=== PATIENT | male | born 1960 ===

== ENCOUNTER 2017-04-18 13:13 | Inpatient (IN) | payer OTHER ==
[2017-04-18] MEDS ORDERED: MAG HYDROX/AL HYDROX/SIMETH 30 ML UDCUP PO PRN (18:51)
[2017-04-18] MEDS ORDERED: MAGNESIUM HYDROXIDE 30 ML UDCUP PO PRN (18:51)
[2017-04-18] MEDS ORDERED: NICOTINE POLACRILEX 2 MG GUM B PRN (19:00)
[2017-04-18] MEDS: cloZAPine 100 MG TAB PO SCH (21:55)
[2017-04-18] MEDS: DOCUSATE SODIUM 100 MG CAP PO SCH (21:56)
[2017-04-18] MEDS: LORazepam 1 MG TAB PO SCH (21:57)
--- NOTE | 2017-04-19 10:09 | GHP ---
[f rep st] HISTORY AND PHYSICAL DATE OF ADMISSION: 04/18/2017 CHIEF COMPLAINT: Behavioral abnormality. HISTORY OF PRESENT ILLNESS: A 56-year-old male who presents to inpatient Psychiatry for ECT therapy from the outside Center and the patient has been found to entirely withdraw from his surrounding envi ronment, taking very little orally. The patient had been diagnosed with a hip fracture approximately 3-4 weeks ago and has been declining at his outside care facility. The patient was transferred for ECT therapy. The patient is not effectively answering review questions. He is speaking in a rhythmi c manner, using nonsensical words. On a few questions prompted he nods his head no. Otherwise will intermittently repeat a word that you say, in this rhythmic manner, but not meaningfully answer quest ions. PAST MEDICAL HISTORY: 1. Schizoaffective disorder. 2. Recent hip fracture. 3. Failure to thrive. SOCIAL HISTORY: Smokes a half a pack per day previously. Intermittently uses marijuana. FAMILY HISTORY: Negative for psychiatric abnormalities. REVIEW OF SYSTEMS: A 10-point review of systems was not obtainable secondary to the patient's psychi atric state. PHYSICAL EXAMINATION: VITAL SIGNS: Blood pressure 140/92, heart rate 116, respiratory rate 20, 94% on room air, 36.3. IN GENERAL: This is a cachectic appearing male. HEENT: Notable for dry mucous m embranes. Eye exam is negative for any icterus. CARDIAC: Patient is tachycardic but regular. PULM ONARY: No clear rales or rhonchi are heard through his rhythmic speech. GASTROINTESTINAL: Patient is thin. Positive bowel sounds. Nontender. MUSCULOSKELETAL: Negative for any lower extremity edema. There is decubitus skin breakdown on the coccyx, which was present on admission without surrounding e rythema. NEUROLOGIC: He is moving all 4 extremities. PSYCHIATRIC: He is not engaging in outside sti mulus. DATA: Urinalysis shows ketones. ASSESSMENT AND PLAN: This is a 56-year-old male with schizoaffective disorder presenting for electro convulsive therapy. 1. Failure to thrive. Patient has marked cachexia, body mass index of 13. I have asked for basic l abs to evaluate his overall electrolyte and fluid status. Have encouraged the nurses to assist in or al intake, either solid or liquid. 2. Severe protein-calorie malnutrition. This has certainly been progressive over time compound by h is psychiatric illness. Hopefully electroconvulsive therapy will assist. Again have encouraged supp ort staff nursing to prompt and provide food. 3. Tachycardia. Presumed sinus as its regular on examination, suspect this is likely volume related . We will send basic labs and follow. Would like to avoid an IV and IV fluids if we can. 4. Recent hip fracture. I do not have any imaging data or supporting data of how this was treated. The patient is currently non ambulatory secondary to his psychiatric illness. Can discuss imaging o r getting old records with the nursing staff on . 5. Decubitus wound is currently dressed. Wound Care should be consulted. Again will send a CBC to look for any signs of deeper infection. 6. I have discussed the case with the RN on the floor. We will send basic labs today. Follow the p jamila's vital signs closely and do our best to encourage oral intake as able. /[id number]/MODL
[2017-04-19] MEDS: LORazepam 1 MG TAB PO SCH ×3 (10:20→22:43)
[2017-04-19] MEDS: DOCUSATE SODIUM 100 MG CAP PO SCH ×2 (10:20→22:42)
[2017-04-19 11:12] LABS: PLATELET COUNT 419 10^3/uL (150-400)
--- NOTE | 2017-04-19 15:05 | BAPA ---
[f rep st] ADMISSION PSYCHIATRIC ASSESSMENT DATE OF SERVICE: 04/19/2017 CHIEF COMPLAINT: The patient does not respond when asked questions. He was referred here from [facility] for ECT treatment. HISTORY OF PRESENT ILLNESS: The patient is a 56-year-old male with a history of schizoaffective disorder, bipolar type with psychotic features. Admitted to [facility] for treatment of sepsis, and was discharged back to [facility] on 04/13/2017. He was then admitted to [facility] on 04/15/2017, he was referred from his care home facility on 04/14/2017, for concern about worsening psychosis, he had been residing at [place] following rehab from a hip fracture on 03/28/2017. Initially, he was able to communicate and move without problems, however, in the last week and half prior to [facility] admission, he developed a gradual decrease in altered mental status. Decreased cognitive abilities, inability interact with his surroundings, echolalia, isolated episodes of waxy flexibility. His sleep and eating had been erratic, and at some point, stopped completely. The care home facility staff were unable to say whether the patient was experiencing hallucinations, but they did note that he was confused and babbling , and talking nonsense. He is making eye contact, but otherwise responding to questions. Patient was placed on M1 hold at [facility], the noted "a danger to self and gravely disabled, due to his medical condition and exhibiting severe psychosis throughout the day." Prior to going into [facility], the patient when he was at [place] was taking the following medications: Tylenol for postop light hip pain, albuterol p.r.n. for COPD, Clozaril 400 mg at bedtime, Colace p.r.n. for constipation, Lovenox injection every 24 hours for 21 days post hip surgery for DVT prophylaxis. He was on iron supplement for anemia. He was on Levaquin for pneumonia, Lithobid, NicoDerm, Risperdal, vitamin C, Ativan for anxiety. According to psychiatric assessment that was done by Brennan Cali MD, at the inpatient psych unit at [facility], he noted "Anthony is a 56-year-old male with schizoaffective disorder, referred on 04/14/2017 for altered mental status. Differential for altered mental status includes acute psychotic episode versus delirium. On examination he exhibits somewhat slow, stilted, but continues speech relatively well, articulated, soft at times, metronomic with delusional content. Sometimes congregation base, that with echolalia, slight apraxias, supports his primary does diagnosis as acute psychosis secondary to his underlying schizoaffective disorder. Of note, baseline is much better with independent function in an apartment, chronic, more mild psychosis, so the current picture is severe episode of schizoaffective." Dr. Cali's note continues that the patient is currently full assist, PT, OT, status post hip fracture a month prior to admission to [facility], currently lives at [place], unable to have any meaningful conversations. RNs report mostly no behavioral issues at [place], rare noncompliance of medications, occasional minimal agitation for short periods of time, but no meaningful interactions, occasionally follows commands, briefly responds, asked for chocolate milk. Information that was provided by [place] is as follows: The patient has been residing at [place] following rehab from hip fracture on 03/28/2017. At that time, he was able to communicate and move without problems, although, he was in a wheelchair. Over the last week, having increasing altered mental status, poor cognition, echolalia, decreased eating, erratic sleep. He was treated for the sepsis, as previously noted in the discharge back to [place], without any noticeable improvement in his mental status. Psychiatry was consulted to address the patient's changes in mental status and clarify the diagnosis, and they gave the following recommendations. RECOMMENDATION: 1. Continue 1 mg lorazepam p.o. q.i.d. for psychogenic catatonia. 2. Could very much benefit from ECT and prognosis without ECT very guarded. 3. For now, continue clozapine, lithium, which is at a therapeutic dose now, the level was 0.7 on 04/18/2017. 4. Discussed at length with Dr. Burnett, at [facility], will accept him for ECT. 5. Stop Risperdal, any benefit added clozapine and muddies the number of meds picture with added side effects. 6. If no improvement, at some point, could consider scheduled Tylenol 500 p.o. t.i.d. for possible pain, recommend likely stopping the propranolol, which was prescribed for akathisia since the patient is no longer on risperidone. 7. He seems to do fairly well with minimal interaction, gets upset with continued questions, in general recommend not trying to explain or ask many questions. 8. The patient will be transferred on a mental health hold for grave disability and longer-term danger to self, from worsening medical condition from his psychosis. The patient was transferred on 04/18/2017 to [facility] inpatient behavior health services unit on [address], at the recommendation of the patient's treating psychiatrist, Dr. Brennan Cali from [facility], who had discussed ECT treatment and recommended it due to the patient's grave disability and serious decompensation, both physically and mentally over the last couple of weeks. PAST PSYCHIATRIC HISTORY: As previously noted, the patient has a history of schizoaffective disorder, bipolar type with psychotic features. He had been residing at [facility], and was getting followup treatment in the outpatient [facility]. He was being prescribed as an outpatient, Lithobid 300 mg p.o. b.i.d., he was getting Clozaril 400 mg p.o. q.h.s. He was also getting Risperdal 1 mg p.o. b.i.d., which was stopped at [facility] on the inpatient unit, and Ativan 1 mg p.o. q.i.d. was added for catatonia. He was also getting propranolol 10 mg p.o. t.i.d., for akathisia, supposedly related to his Risperdal, but that was also discontinued, when his Risperdal was discontinued by Dr. Cali on the inpatient unit at [facility]. ALLERGIES: The patient is allergic to penicillin. CURRENT MEDICATIONS: Are as follows, the patient was discharged from [facility] on the following meds: He was on acetaminophen 650 mg p.o. q.6 hours p.r.n. for postop hip pain. Lorazepam 1 mg p.o. q.i.d. for psychogenic catatonia, albuterol 90 mcg 1-2 puffs q.4 hours p.r.n. for COPD, vitamin C 500 mg tablet 1 tab p.o. daily, Clozaril 400 mg p.o. q.h.s., Colace 100 mg p.o. b.i.d. p.r.n., Lovenox 40 mg IM q.24 hours x21 days status post hip surgery for DVT prophylaxis. Iron 325 mg tab daily for anemia, lithium carbonate ER 300 mg tab p.o. b.i.d., and a nicotine patch 21 mg per 24 hours. PAST MEDICAL HISTORY: Medical records from [facility] indicate that the patient has had the previous medical conditions treated, including arthritis severe protein calorie malnutrition, nicotine dependence, schizoaffective disorder, bipolar type with psychotic features, sepsis, hip fracture on 03/28/2017, status post hip replacement. He has also had surgery for a fracture on his right foot. SOCIAL HISTORY: The patient has been residing at [facility]. He has no known family involved in his life at this time. SUBSTANCE USE HISTORY: Patient occasionally smokes marijuana. He is also 1-1/ 2 pack per day smoker, for many decades. CONTACT INFORMATION: At [place], his egg caser is Xi Diaz, phone number is [phone]. No information provided about the patient's educational history or work history. No legal information. ADMISSION LABS: Since patient was a direct transfer from [facility], there are no labs from our ED, but he did have labs done on 04/14/2017, when he was admitted from [place] to the ED at [facility], his white cell count was 8.0 , hemoglobin was 11.1, hematocrit was 34.1. The patient has a history of iron- deficient anemia, platelet count was 459. Sodium level was 138, potassium was 4.1, chloride was 108, glucose was 174, BUN 32, creatinine was 0.7. His albumin was 3.4, total bilirubin 0.4, alkaline phosphatase was 146, AST was 27. [place] level was 0.2 on 04/14, it went up to 0.7 on 04/18/2017, according to Dr. Cali's note. MENTAL STATUS EXAMINATION: Patient is extremely cachectic, he had a body mass index of 13 upon presentation to [address] [place] [address], he has severe protein calorie malnutrition. He is seated in a wheelchair. Disheveled. He makes eye contact when the MD walks into the room. However, he has constant echolalia, he repeats the same phrases over and over, and over again. He does not have much movement. He is sitting in the wheelchair, in no acute distress, or does not appear to be in any pain. He is vocalizing any pain when he is adjusted in the wheelchair by the staff. Other than making eye contact, he has no interaction with the interviewer whatsoever. He does not pause in his repetitive speech, he is not alert and oriented. His sensorium is very altered. It is impossible to determine whether or not he is responding to internal stimuli, or whether he has actively hallucinating, or psychotic at this time. He did not sleep at all last night, and he has not eaten anything this morning. The nurses did try to give him some medications with applesauce, but he spit it out. He does have a water bottle on his bedside tray, but he has had only a few sips with much prompting. IMPRESSION: This is an extremely, both physically and mentally decompensated individual, with severe medical complications due to failure to thrive, as well as status post recent hip fracture surgery, with sepsis secondary to his surgery , and then extreme protein calorie malnutrition, on top of which he has an acute exacerbation of schizoaffective disorder with psychosis and psychogenic catatonia. DIAGNOSES: 1. Schizoaffective disorder, bipolar type with psychotic features, as well as catatonic features. 2. Cannabis use disorder, moderate. 3. Nicotine use disorder, severe. 4. Psychosocial stressors include medical complications, status post surgery and recent septic episode, extreme failure to thrive over the last several weeks. Evidence of protein calorie malnutrition, cachectic. No family involvement, living in an independent living facility. No social support. Unknown financial support. PLAN: 1. Admit patient to behavioral health services inpatient unit on an M1. 2. Monitor closely for safety. The patient is on fall precautions due to his extremely altered mental status and severely decompensated physical state. 3. Patient was evaluated by the hospitalist, Dr. Law, this morning. Dr. Law noted that the patient has a body mass index of 13. She stated "I have asked for basic labs to evaluate his overall electrolyte and fluid status. Have encouraged nurses to assist in oral intake, both solid and liquid. She also noted the patient has severe protein calorie malnutrition. This is certainly been progressive over time, compounded by psychiatric illness, hopefully ECT therapy will assist. Again, I have encouraged staff to prompt and provide food." Dr. Law also noted that the patient had sinus tachycardia, on his most recent EKG, which was done at [facility], just prior to arrival. She noted that "suspects this is likely volume related, we will send basic labs and follow, would like to avoid IV and IV fluids, if we can." Dr. Law also noted that the patient has a recent hip fracture, but she states "I do not have any imaging date or supporting data of how this was treated, the patient is currently nonambulatory secondary to a psychiatric illness, can discuss imaging or getting old records with the nursing staff on [address] [place] [address]." The patient also has a decubitus ulcer that was dressed at [facility] in [place]. Dr. Law stated that "wound care should be consulted, again we will send CBC to look for signs of deeper infection." Most recent set of labs that was sent this morning by the [address] [place] [address] RN: White cell count is 8.27 , hemoglobin 12.7, hematocrit 38.0, platelet count 419. Sodium 140, potassium 4.7, chloride 103, BUN 20, creatinine 0.7, glucose 120, and calcium of 10.2. So , this patient does not show any signs of acute electrolyte imbalance secondary to his poor p.o. intake, but we will continue to monitor and assess whether or not he needs IV fluids, or parental nutrition. 4. At this time, the patient to be continued on the regimen that he was on while he was at [facility], which includes Clozaril 400 mg p.o. q.h.s., Lithobid 300 mg p.o. b.i.d., Colace 100 mg p.o. b.i.d., Ativan 1 mg p.o. t.i.d. for catatonia. 5. Appreciate Dr. Law and the rest of the hospitalist staff following this patient with acute malnutrition and failure to thrive, for his ongoing medical needs. 6. At the current time, patient is not able to engage in any milieu therapies or group therapies, he is wheelchair bound and staying in his room most of the day. He is on fall precautions, and he has a line of sight for his safety. 7. Estimated length of stay is 5-7 days. 8. After reviewing medical records from [facility] and [facility], and doing in person evaluation of the patient, this MD feels strongly that ECT is the intervention most likely to produce the most beneficial results for this patient, given the fact that he has acute exacerbation of his schizoaffective disorder with acute psychosis, as well as catatonic features. He has been on lorazepam 1 mg p.o. q.i.d. for the last 2-3 days, which shows only minimal improvement, I would recommend emergency ECT, as this is the treatment that is most likely to show benefit for the patient in the short term, given the fact that he has had deteriorating physical and mental condition over the last several weeks. The combination of his psychiatric illness, with his severe failure to thrive, and protein calorie malnutrition, puts him at risk not only for body wasting, but also possible neurological deficits, which can be long-term, as well as the physical risks of poor p.o. intake, as a result of his catatonia, and his psychosis, which make him gravely disabled and is impairing his health and well being, if not his very life, if this condition continues without appropriate intervention. Therefore, this MD would strongly encourage ECT as the treatment most likely to help this patient recover and return to his cognitive and physical, as well as mental baseline. /[id number]/MODL MTDD
[2017-04-19] MEDS: cloZAPine 100 MG TAB PO SCH (22:42)
[2017-04-19] MEDS: LITHIUM CARBONATE ER 300 MG TAB PO SCH (22:43)
[2017-04-20] MEDS: LORazepam 1 MG TAB PO SCH ×4 (06:38→21:56)
[2017-04-20] MEDS: LITHIUM CARBONATE ER 300 MG TAB PO SCH ×2 (09:13→21:55)
[2017-04-20] MEDS: DOCUSATE SODIUM 100 MG CAP PO SCH ×2 (09:13→21:56)
--- NOTE | 2017-04-20 13:49 | SOAPPROG ---
SOAP Progress Note Assessment/Plan: Assessment: Plan: 04/20/17 13:45 1. Patient still catatonic. Not eating and drinking very little (< 600cc's this AM). Electrolytes are WNL, albumin only slightly below normal. 2. Will order E-meds Day #1 for IM Ativan to treat catatonia since patient is spitting out all meds. 3. Strongly recommend emergency ECT for patient's safety and wellbeing. Subjective: Met with patient, reviewed chart and d/w staff. Patient is sitting in wheelchair rocking back and forth with fingers in his mouth. He has less echolalia today, and is murmuring in lower voice than yesterday. He does not have waxy flexibility or rigidity. He moves his arms freely and can transfer into/out of bed with assistance. He has consumed about 400cc's of milk and some small sips of water this AM. No falls yesterday or today. Nursing is discussing option of using gait belt while patient is seated, reviewed this option with staff and RN is talking to [facility] to work out details and consider alternatives. Objective: Vital Signs Temp Pulse Resp BP Pulse Ox 37.4 C 106 H 18 104/70 93 04/20/17 10:18 04/20/17 10:18 04/20/17 06:45 04/20/17 10:18 04/20/17 10:18 Laboratory Results 04/19/17 10:12 04/19/17 10:12 04/19/17 04/20/17 04/21/17 05:59 05:59 05:59 Intake Total 800 200 Output Total 200 Balance 800 0 MSE: Affect: Constricted Mood: No response TP: Unable to assess b/c patient engages in nonsensical speech, echolalia and does not engage interviewer or answer questions d/t catatonic sxs TC: See TP Insight/Judgment: Severely impaired - Time Spent With Patient Time Spent With Patient: 20" - Pending Discharge Pending Discharge Within 24 Hours: No Pending Discharge Within 48 Hours: No ICD10 Worksheet Patient Problems: Problems Problem Status Onset Decubitus ulcer Acute
[2017-04-20] MEDS ORDERED: LORazepam 2 MG/ML INJ IM ONE (14:18)
--- NOTE | 2017-04-20 14:38 | HOSPPROG ---
Hospitalist Progress Note Assessment/Plan: # Severe protein calorie malnutrition - BMI 13 - 2/2 mental illness and failure to thrive pt took minimal solid food overnight- however did increase his liquid intake with RN support - continue to encourage intake - hopefully ECT will help # Tachycardia - suspect 2/2 hypovolemia - creatinine 0.7 oxygen saturations 94% on RA - continue to monitor and encourage PO # Decubitus ulcer - present on admission - wound care consulted # Catatonia - management per psychiatry I have discussed the case with RN - continue to encourage PO - labs without significant signs of dehydration Subjective: no reported complaints Objective: Vital Signs Temp Pulse Resp BP Pulse Ox 37.4 C 106 H 18 104/70 93 04/20/17 10:18 04/20/17 10:18 04/20/17 06:45 04/20/17 10:18 04/20/17 10:18 Laboratory Results 04/19/17 10:12 04/19/17 10:12 04/19/17 04/20/17 04/21/17 05:59 05:59 05:59 Intake Total 800 200 Output Total 200 Balance 800 0 - Physical Exam Constitutional: cachectic Eyes: anicteric sclera Ears, Nose, Mouth, Throat: dry mucous membranes Cardiovascular: regular rate and rhythym, tachycardia Respiratory: no respiratory distress Gastrointestinal: normoactive bowel sounds Genitourinary: no bladder fullness Skin: warm, pressure ulcer Musculoskeletal: No asymmetric calves Neurologic: No AAOx3 Psychiatric: other (catatonia) Lymph, Heme, Immunologic: no cervical LAD ICD10 Worksheet Patient Problems: Problems Problem Status Onset Decubitus ulcer Acute - ICD10 Problem Qualifiers (1) Decubitus ulcer
[2017-04-20] MEDS: LORazepam 2 MG/ML INJ IM PRN ×2 (18:14→21:49)
[2017-04-20] MEDS: cloZAPine 100 MG TAB PO SCH (21:56)
[2017-04-21] MEDS: LORazepam 1 MG TAB PO SCH ×5 (06:30→21:37)
--- NOTE | 2017-04-21 08:05 | CPEKG ---
Heart Rate: 94 RR Interval: 638 P-R Interval: 104 QRSD Interval: 94 QT Interval: 364 QTC Interval: 456 P [place]: 0 QRS [place]: 73 T Wave [place]: -40 EKG Severity - NORMAL ECG - EKG Impression: SINUS RHYTHM EKG Impression: MODERATE ARTIFACT Electronically Signed By: Ancelmo Peraza 21-Apr-2017 10:43:29
[2017-04-21] MEDS: DOCUSATE SODIUM 100 MG CAP PO SCH (08:18)
[2017-04-21] MEDS: LITHIUM CARBONATE ER 300 MG TAB PO SCH (08:20)
[2017-04-21] MEDS ORDERED: CITRIC ACID/SODIUM CITRATE 30 ML UDCUP PO ONE (10:46)
[2017-04-21] MEDS ORDERED: NS 1,000 ML IV ONE (10:46)
[2017-04-21] MEDS ORDERED: ONDANSETRON DISINTEGRATING 4 MG TAB PO ONE (10:46)
[2017-04-21] MEDS ORDERED: LIDOCAINE 2% 5 ML SDV ID ONE (10:46)
[2017-04-21] MEDS ORDERED: GLYCOPYRROLATE 0.2 MG/1 ML VIAL ONE (12:34)
[2017-04-21] MEDS ORDERED: ROCURONIUM 50 MG/5 ML VIAL ONE (12:34)
[2017-04-21] MEDS ORDERED: ONDANSETRON 4 MG/2 ML VIAL ONE (12:34)
[2017-04-21] MEDS ORDERED: SUCCINYLCHOLINE CHLORIDE 200 MG/10 ML VIAL ONE (12:34)
[2017-04-21] MEDS ORDERED: MIDAZOLAM 2 MG/2 ML VIAL ONE (12:34)
[2017-04-21] MEDS ORDERED: fentaNYL 100 MCG/2 ML INJ ONE (12:34)
--- NOTE | 2017-04-21 13:02 | SOAPPROG ---
SOAP Progress Note Assessment/Plan: Assessment: Plan: 04/21/17 16:22 Remains catatonic. Will d/c lithium to eliminate the possibility of worsening cognition during ECT. Will continue Clozaril and Ativan. Subjective: Pt seen, discussed with staff, Dr. Malone and Dr. Cali from [facility]. Records from [facility] and [facility] also reviewed. he is a 56 y/o CM with hx of Schizoaffective D/o. He was originally admitted to [facility] earlier in March due to a hip fracture. He received surgical repair of this and was transferred to SNF. While there he developed pneumonia and was readmitted medically. When he returned, he exhibited a severe decline in his mentation and was thought to be either delirious or catatonic. His mental status worsened despite stabilization of his medical condition and he was diagnosed with catatonia. He was transferred at the request of Dr. Cali and Dr Vizcarra (psychiatrists) who both recommended ECT. Dr. Malone also recommended ECT when he evaluated the patient on 04/19/17. Pt is not eating or drinking and cannot communicate meaningfully. He is unable to ambulate or toilet himself. It is Dr. Malone's opinion that emergency ECT is indicated due to the severity of pt's condition and his inability to eat or drink. I concur with this opinion. Pt was transported to the ECT suite this morning and bilateral ECT was performed under emergency circumstances pursuant to [place] statute. Short term certification was placed and proper petition was sent to the court. He tolerated the procedure well with no complications. He had bilateral treatment at 50%, 0.5mS pulse width and had an adequate seizure with good organization, good amplitude and morphology and good suppression. Objective: Vital Signs Temp Pulse Resp BP Pulse Ox 37.4 C 106 H 18 104/70 93 04/20/17 10:18 04/20/17 10:18 04/20/17 06:45 04/20/17 10:18 04/20/17 10:18 Laboratory Results 04/19/17 10:12 04/19/17 10:12 04/20/17 04/21/17 04/22/17 05:59 05:59 05:59 Intake Total 800 200 Output Total 200 Balance 800 0 MSE: Sitting in chair looking forward without blinking. Does not engage or make eye contact. Does not speak despite numerous requests by me to answer questions. He does shake his head "no" to some questions, though not appropriately. Compliant with getting his IV started. - Time Spent With Patient Time Spent With Patient: 55" ICD10 Worksheet Patient Problems: Problems Problem Status Onset Decubitus ulcer Acute
[2017-04-21] MEDS ORDERED: ONDANSETRON DISINTEGRATING 4 MG TAB ONE (13:16)
[2017-04-21] MEDS ORDERED: ACETAMINOPHEN 325 MG TAB ONE (13:25)
--- NOTE | 2017-04-21 15:09 | WOCRNPDOC ---
WOCRN Advanced Assessment Note - Skin Integrity Problem, Advanced Assess Sacrum Pressure Injury Dressing Type: Allevyn Life Integumentary Issue Intervention: Visualized Under Dressing Wound Bed Constitution: Scab, Healed Site Measurement - Head-to-Toe Length X Width X Depth (cm): 3x1.3x0 Pressure Injury Present on Admit: Yes Skin Integrity Problem Comment: Full thickness pressure injury present of unknown previous stage now healed and fully epithelized There is some scab remaining along each edge but the tissue is completely healed. Wound care will not follow. Offload to prevent re-opening. Right Heel Pressure Injury Dressing Type: ABD Pad Dressing Description: Clean/Dry, Intact Integumentary Issue Intervention: Dressing Removed Cari Wound Tissue: Erythema, Non-blanching Site Measurement - Head-to-Toe Length X Width X Depth (cm): 2x3x0 Pressure Injury Stage: Deep Tissue Injury (DTI) Pressure Injury Present on Admit: Yes Skin Integrity Problem Comment: Evolving Deep tissue injury that may begining to form into a blister. Wound will likely open. Education with RN about needing to offload the area completely and at all times. OK to leave PAO until wound develops and at that point cover with [employer] life and alert well service derrick worker. Wound care will round again next week. Recommend offloading boots strongly. If in bed heels should be floating off the edge of a pillow at all times.
[2017-04-21] MEDS: LORazepam 2 MG/ML INJ IM PRN (21:37)
[2017-04-21] MEDS: cloZAPine 100 MG TAB PO SCH (21:38)
[2017-04-22] MEDS: LORazepam 2 MG/ML INJ IM PRN ×3 (05:08→16:46)
[2017-04-22] MEDS: LORazepam 1 MG TAB PO SCH ×5 (05:17→20:33)
--- NOTE | 2017-04-22 10:53 | SOAPPROG ---
SOAP Progress Note Assessment/Plan: Assessment: Plan: 04/21/17 16:22 Remains catatonic. Will d/c lithium to eliminate the possibility of worsening cognition during ECT. Will continue Clozaril and Ativan. 04/22/17 10:53 Catatonia: Excellent, though temporary benefit from initial ECT. Hope to see more lasting effect as we go. CCM. Subjective: Pt seen, discussed with staff. Did remarkably well after ECT yesterday, talking and eating for several hours. This effect did not last, however, and he regressed back into catatonia. He was up most of the night, disrobing, frequently incontinent of bowel and bladder. Non-verbal again today. Did drink a Mighty Shake and some water this morning. Objective: Vital Signs Temp Pulse Resp BP Pulse Ox 37.2 C 95 16 103/57 L 95 04/21/17 16:25 04/22/17 06:00 04/22/17 06:00 04/22/17 06:00 04/22/17 06:00 Laboratory Results 04/19/17 10:12 04/19/17 10:12 04/21/17 04/22/17 04/23/17 05:59 05:59 05:59 Intake Total 200 36 Output Total 200 100 Balance 0 -64 MSE: Lying in bed naked, non-verbal. Does make eye contact. No response to questions. - Time Spent With Patient Time Spent With Patient: 25" ICD10 Worksheet Patient Problems: Problems Problem Status Onset Decubitus ulcer Acute
[2017-04-22] MEDS: cloZAPine 100 MG TAB PO SCH (20:33)
[2017-04-23] MEDS: LORazepam 1 MG TAB PO SCH ×4 (00:14→18:06)
[2017-04-23] MEDS ORDERED: CITRIC ACID/SODIUM CITRATE 30 ML UDCUP PO ONE (04:00)
[2017-04-23] MEDS ORDERED: NS 1,000 ML IV ONE (04:00)
[2017-04-23] MEDS ORDERED: LIDOCAINE 2% 5 ML SDV ID ONE (04:00)
[2017-04-23] MEDS ORDERED: ONDANSETRON DISINTEGRATING 4 MG TAB PO ONE (04:00)
[2017-04-23] MEDS ORDERED: MIDAZOLAM 2 MG/2 ML VIAL ONE (05:58)
[2017-04-23] MEDS ORDERED: fentaNYL 100 MCG/2 ML INJ ONE (05:58)
[2017-04-23] MEDS ORDERED: ROCURONIUM 50 MG/5 ML VIAL ONE (05:59)
[2017-04-23] MEDS ORDERED: SUCCINYLCHOLINE CHLORIDE 200 MG/10 ML VIAL ONE (05:59)
[2017-04-23] MEDS ORDERED: GLYCOPYRROLATE 0.2 MG/1 ML VIAL ONE (05:59)
[2017-04-23] MEDS ORDERED: ONDANSETRON 4 MG/2 ML VIAL ONE (05:59)
--- NOTE | 2017-04-23 10:33 | SOAPPROG ---
SOLISA Progress Note Assessment/Plan: Assessment: Plan: 04/21/17 16:22 Remains catatonic. Will d/c lithium to eliminate the possibility of worsening cognition during ECT. Will continue Clozaril and Ativan. 04/22/17 10:53 Catatonia: Excellent, though temporary benefit from initial ECT. Hope to see more lasting effect as we go. CCM. 04/23/17 10:32 Catatonia: Continued good benefit from ECT. Will do consecutive treatments W, T, F this week due to severity of pt's illness and excellent response. Subjective: Pt seen, discussed with staff. Remained catatonic, non-verbal throughout the night and this morning. He underwent bilateral ECT without complication this morning. Had another remarkable turnaround after treatment. He is now lucid, conversant. Ate two breakfasts. Demonstrates a good sense of humor. Agreeable to ongoing ECT. Objective: Vital Signs Temp Pulse Resp BP Pulse Ox 36.9 C 76 16 90/63 L 95 04/23/17 08:10 04/23/17 08:10 04/23/17 08:10 04/23/17 08:10 04/23/17 08:10 Laboratory Results 04/19/17 10:12 04/23/17 08:10 04/22/17 04/23/17 04/24/17 05:59 05:59 05:59 Intake Total 36 250 Output Total 100 Balance -64 250 - Time Spent With Patient Time Spent With Patient: 35" ICD10 Worksheet Patient Problems: Problems Problem Status Onset Decubitus ulcer Acute
[2017-04-23] MEDS: ACETAMINOPHEN 325 MG TAB PO PRN ×2 (11:18→15:33)
[2017-04-23] MEDS: IBUPROFEN 600 MG TAB PO PRN (13:48)
[2017-04-23] MEDS: cloZAPine 100 MG TAB PO SCH (21:13)
[2017-04-24] MEDS: LORazepam 1 MG TAB PO SCH ×6 (03:16→18:07)
[2017-04-24] MEDS ORDERED: ONDANSETRON 4 MG/2 ML VIAL ONE (06:24)
[2017-04-24] MEDS ORDERED: GLYCOPYRROLATE 0.2 MG/1 ML VIAL ONE (06:24)
[2017-04-24] MEDS ORDERED: fentaNYL 100 MCG/2 ML INJ ONE (06:24)
[2017-04-24] MEDS ORDERED: SUCCINYLCHOLINE CHLORIDE 200 MG/10 ML VIAL ONE (06:24)
[2017-04-24] MEDS ORDERED: ROCURONIUM 50 MG/5 ML VIAL ONE (06:24)
[2017-04-24] MEDS ORDERED: MIDAZOLAM 2 MG/2 ML VIAL ONE (06:25)
[2017-04-24] MEDS ORDERED: METHOHEXITAL SODIUM 500 MG/50 ML MDV ONE (06:25)
[2017-04-24] MEDS: ACETAMINOPHEN 325 MG TAB PO PRN (13:04)
--- NOTE | 2017-04-24 15:39 | SOAPPROG ---
SOAP Progress Note Assessment/Plan: Assessment: Plan: 04/21/17 16:22 Remains catatonic. Will d/c lithium to eliminate the possibility of worsening cognition during ECT. Will continue Clozaril and Ativan. 04/22/17 10:53 Catatonia: Excellent, though temporary benefit from initial ECT. Hope to see more lasting effect as we go. CCM. 04/23/17 10:32 Catatonia: Continued good benefit from ECT. Will do consecutive treatments W, T, F this week due to severity of pt's illness and excellent response. 04/24/17 15:38 Catatonia: Remains severely ill. WIll plan for further acute course ECT tomorrow. Subjective: Pt seen, discussed with staff. Did great yesterday until later in the evening. 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 Vomited around [address] Magallanes preferred to hold treatment due to increased possibility of aspiration. Pt was non-verbal with me this morning. Slept in bed all day. Objective: Vital Signs Temp Pulse Resp BP Pulse Ox 36.6 C 108 H 18 103/67 94 04/24/17 07:18 04/24/17 07:18 04/24/17 07:18 04/24/17 07:18 04/24/17 07:18 Laboratory Results 04/19/17 10:12 04/23/17 08:10 04/23/17 04/24/17 04/25/17 05:59 05:59 05:59 Intake Total 009 313 4530 Balance 646 701 3005 MSE: Lying in bed, sleeping. Does not interact or speak. Labs nl with exception of increased Alk Phos. Likely acute phase reactant. - Time Spent With Patient Time Spent With Patient: 35" ICD10 Worksheet Patient Problems: Problems Problem Status Onset Decubitus ulcer Acute
[2017-04-24] MEDS: cloZAPine 100 MG TAB PO SCH (18:30)
[2017-04-25] MEDS ORDERED: CITRIC ACID/SODIUM CITRATE 30 ML UDCUP PO ONE (04:06)
[2017-04-25] MEDS ORDERED: NS 1,000 ML IV ONE (04:06)
[2017-04-25] MEDS ORDERED: ONDANSETRON DISINTEGRATING 4 MG TAB PO ONE (04:06)
[2017-04-25] MEDS ORDERED: LIDOCAINE 2% 5 ML SDV ID ONE (04:06)
[2017-04-25] MEDS ORDERED: fentaNYL 100 MCG/2 ML INJ ONE (05:05)
[2017-04-25] MEDS ORDERED: MIDAZOLAM 2 MG/2 ML VIAL ONE (05:05)
[2017-04-25] MEDS ORDERED: GLYCOPYRROLATE 0.2 MG/1 ML VIAL ONE (05:05)
[2017-04-25] MEDS ORDERED: ONDANSETRON 4 MG/2 ML VIAL ONE (05:06)
[2017-04-25] MEDS ORDERED: ROCURONIUM 50 MG/5 ML VIAL ONE (05:06)
[2017-04-25] MEDS ORDERED: LIDOCAINE 2% 5 ML SDV ONE (05:06)
[2017-04-25] MEDS ORDERED: SUCCINYLCHOLINE CHLORIDE 200 MG/10 ML VIAL ONE (05:06)
[2017-04-25] MEDS ORDERED: CITRIC ACID/SODIUM CITRATE 30 ML UDCUP ONE (06:22)
[2017-04-25] MEDS ORDERED: ONDANSETRON DISINTEGRATING 4 MG TAB ONE (06:22)
[2017-04-25] MEDS: LORazepam 1 MG TAB PO SCH ×3 (11:45→19:26)
--- NOTE | 2017-04-25 13:21 | SOAPPROG ---
SOAP Progress Note Assessment/Plan: Assessment: Plan: 04/21/17 16:22 Remains catatonic. Will d/c lithium to eliminate the possibility of worsening cognition during ECT. Will continue Clozaril and Ativan. 04/22/17 10:53 Catatonia: Excellent, though temporary benefit from initial ECT. Hope to see more lasting effect as we go. CCM. 04/23/17 10:32 Catatonia: Continued good benefit from ECT. Will do consecutive treatments W, T, F this week due to severity of pt's illness and excellent response. 04/24/17 15:38 Catatonia: Remains severely ill. WIll plan for further acute course ECT tomorrow. 04/25/17 13:21 Catatonia: Continued benefit from ECT. WIll plan to treat tomorrow morning. Subjective: Pt seen, discussed with staff. Remains catatonic this morning, non-verbal. No further vomiting. Drinking, including Mighty Shakes, with staff encouragement. Underwent bilateral ECT this morning without complication. Quiet, but verbal afterward. Able to make appropriate eye contact, eat and drink. Objective: Vital Signs Temp Pulse Resp BP Pulse Ox 37.0 C 92 12 93/50 L 95 04/25/17 10:00 04/25/17 10:00 04/25/17 10:00 04/25/17 10:00 04/25/17 10:00 Laboratory Results 04/19/17 10:12 04/23/17 08:10 04/24/17 04/25/17 04/26/17 05:59 05:59 05:59 Intake Total 240 1800 Balance 240 1800 MSE: Calm, coop. Affect is constricted, flat. Improved after ECT. Mood is not indicated. TP is linear, though abbreviated after treatment. TC reveals no overt evidence of psychosis. Oriented to person and situation. - Time Spent With Patient Time Spent With Patient: 35" ICD10 Worksheet Patient Problems: Problems Problem Status Onset Decubitus ulcer Acute
[2017-04-25] MEDS: IBUPROFEN 600 MG TAB PO PRN (14:34)
[2017-04-25] MEDS: cloZAPine 100 MG TAB PO SCH (22:35)
[2017-04-26] MEDS: LORazepam 1 MG TAB PO SCH ×4 (04:42→19:32)
[2017-04-26] MEDS ORDERED: NS 1,000 ML IV ONE (05:00)
[2017-04-26] MEDS ORDERED: LIDOCAINE 2% 5 ML SDV ID ONE (05:00)
[2017-04-26] MEDS ORDERED: CITRIC ACID/SODIUM CITRATE 30 ML UDCUP PO ONE (05:00)
[2017-04-26] MEDS ORDERED: ONDANSETRON DISINTEGRATING 4 MG TAB PO ONE (05:00)
[2017-04-26] MEDS ORDERED: fentaNYL 100 MCG/2 ML INJ ONE (07:11)
[2017-04-26] MEDS ORDERED: MIDAZOLAM 2 MG/2 ML VIAL ONE (07:11)
[2017-04-26] MEDS ORDERED: SUCCINYLCHOLINE CHLORIDE 200 MG/10 ML VIAL ONE (07:12)
[2017-04-26] MEDS ORDERED: ROCURONIUM 50 MG/5 ML VIAL ONE (07:12)
[2017-04-26] MEDS ORDERED: ONDANSETRON 4 MG/2 ML VIAL ONE (07:12)
[2017-04-26] MEDS ORDERED: GLYCOPYRROLATE 0.2 MG/1 ML VIAL ONE (07:12)
[2017-04-26] MEDS ORDERED: LIDOCAINE 2% 5 ML SDV ONE (07:12)
[2017-04-26] MEDS ORDERED: ONDANSETRON DISINTEGRATING 4 MG TAB ONE (07:37)
[2017-04-26] MEDS ORDERED: CITRIC ACID/SODIUM CITRATE 30 ML UDCUP ONE (07:37)
[2017-04-26] MEDS: cloZAPine 100 MG TAB PO SCH (19:32)
--- NOTE | 2017-04-26 21:12 | SOAPPROG ---
SOLISA Progress Note Assessment/Plan: Assessment: Plan: 04/21/17 16:22 Remains catatonic. Will d/c lithium to eliminate the possibility of worsening cognition during ECT. Will continue Clozaril and Ativan. 04/22/17 10:53 Catatonia: Excellent, though temporary benefit from initial ECT. Hope to see more lasting effect as we go. CCM. 04/23/17 10:32 Catatonia: Continued good benefit from ECT. Will do consecutive treatments W, T, F this week due to severity of pt's illness and excellent response. 04/24/17 15:38 Catatonia: Remains severely ill. WIll plan for further acute course ECT tomorrow. 04/25/17 13:21 Catatonia: Continued benefit from ECT. WIll plan to treat tomorrow morning. 04/26/17 21:11 Catatonia: Continued improvement. [facility]. Subjective: Pt seen, discussed with staff. Hyperverbal this morning, nonsensical. Underwent ECT without complication and experienced a good event. Normally conversant afterward. Ate and drank adequately. Objective: Vital Signs Temp Pulse Resp BP Pulse Ox 36.6 C 117 H 20 126/81 H 96 04/26/17 13:02 04/26/17 13:02 04/26/17 13:02 04/26/17 13:02 04/26/17 13:02 Laboratory Results 04/19/17 10:12 04/23/17 08:10 04/25/17 04/26/17 04/27/17 05:59 05:59 05:59 Intake Total 1800 350 500 Balance 1800 350 500 MSE: BEFORE ECT: Verbigerative, disorganized. States, "I have a plastic motorcycle" and "Stop calling me Dowell." AFTER ECT: Calm and appropriately interactive. Introduces himself to me. - Time Spent With Patient Time Spent With Patient: 55" ICD10 Worksheet Patient Problems: Problems Problem Status Onset Decubitus ulcer Acute
[2017-04-27] MEDS: LORazepam 1 MG TAB PO SCH ×4 (06:18→18:33)
[2017-04-27] MEDS: IBUPROFEN 600 MG TAB PO PRN ×2 (09:17→15:31)
--- NOTE | 2017-04-27 15:24 | SOAPPROG ---
SOAP Progress Note Assessment/Plan: Assessment: Per Dr. Burnett's notes: 04/21/17 16:22 Remains catatonic. Will d/c lithium to eliminate the possibility of worsening cognition during ECT. Will continue Clozaril and Ativan. 04/22/17 10:53 Catatonia: Excellent, though temporary benefit from initial ECT. Hope to see more lasting effect as we go. [facility]. 04/23/17 10:32 Catatonia: Continued good benefit from ECT. Will do consecutive treatments W, T, F this week due to severity of pt's illness and excellent response. 04/24/17 15:38 Catatonia: Remains severely ill. WIll plan for further acute course ECT tomorrow. 04/25/17 13:21 Catatonia: Continued benefit from ECT. WIll plan to treat tomorrow morning. 04/26/17 21:11 Catatonia: Continued improvement. [facility]. Plan: 04/27/17 15:20 1. Patient less interactive today. Stays in room most of the day. 2. Patient ate 30% of breakfast, including some pancakes, cereal and drank fluids. 3. Not as talkative, but still alert and better able to respond to questions than at admission. Continues to show improvement. 4. ECT on Friday Subjective: Met with patient, reviewed chart and d/w staff. Patient showed significant improvement after ECT yesterday. He attended art therapy group and was talking to peers and spontaneously began conversation with MD. He told MD "I feel fine" today and admitted he was "totally out of it" last weekend when he was first admitted. Today, he has been more lethargic, sleeping in bed most of the day. He did get up and sit at his desk and eat about 30% of breakfast including solid food such as pancake and cereal. He also drank milk and some water. Objective: Vital Signs Temp Pulse Resp BP Pulse Ox 36.3 C 111 H 18 107/70 97 04/27/17 06:00 04/27/17 06:00 04/27/17 06:00 04/27/17 06:00 04/27/17 06:00 Laboratory Results 04/19/17 10:12 04/23/17 08:10 04/26/17 04/27/17 04/28/17 05:59 05:59 05:59 Intake Total 350 500 Output Total 275 Balance 350 500 -275 MSE: Affect: More range of affect Mood: "Fine" TP: Linear TC: No SI/HI, no evidence of psychosis Insight/Judgment: Poor - Time Spent With Patient Time Spent With Patient: 15" - Pending Discharge Pending Discharge Within 24 Hours: No Pending Discharge Within 48 Hours: No ICD10 Worksheet Patient Problems: Problems Problem Status Onset Decubitus ulcer Acute
[2017-04-27] MEDS: cloZAPine 100 MG TAB PO SCH (20:07)
[2017-04-28] MEDS: LORazepam 1 MG TAB PO SCH ×4 (01:20→20:43)
[2017-04-28] MEDS ORDERED: CITRIC ACID/SODIUM CITRATE 30 ML UDCUP PO ONE (05:00)
[2017-04-28] MEDS ORDERED: ONDANSETRON DISINTEGRATING 4 MG TAB PO ONE (05:00)
[2017-04-28] MEDS ORDERED: NS 1,000 ML IV ONE (05:00)
[2017-04-28] MEDS ORDERED: LIDOCAINE 2% 5 ML SDV ID ONE (05:00)
[2017-04-28] MEDS ORDERED: MIDAZOLAM 2 MG/2 ML VIAL ONE (07:05)
[2017-04-28] MEDS ORDERED: SUCCINYLCHOLINE CHLORIDE 200 MG/10 ML VIAL ONE (07:06)
[2017-04-28] MEDS ORDERED: fentaNYL 100 MCG/2 ML INJ ONE (07:06)
[2017-04-28] MEDS ORDERED: ROCURONIUM 50 MG/5 ML VIAL ONE (07:06)
[2017-04-28] MEDS ORDERED: ONDANSETRON 4 MG/2 ML VIAL ONE (07:06)
[2017-04-28] MEDS ORDERED: GLYCOPYRROLATE 0.2 MG/1 ML VIAL ONE (07:06)
[2017-04-28] MEDS ORDERED: ONDANSETRON DISINTEGRATING 4 MG TAB ONE (08:26)
[2017-04-28] MEDS ORDERED: CITRIC ACID/SODIUM CITRATE 30 ML UDCUP ONE (08:26)
[2017-04-28] MEDS ORDERED: ACETAMINOPHEN 325 MG TAB ONE (09:56)
[2017-04-28] MEDS: IBUPROFEN 600 MG TAB PO PRN ×2 (11:28→19:05)
[2017-04-28] MEDS: ACETAMINOPHEN 325 MG TAB PO PRN ×2 (15:22→20:01)
--- NOTE | 2017-04-28 17:38 | SOAPPROG ---
SOAP Progress Note Assessment/Plan: Assessment: Plan: 04/21/17 16:22 Remains catatonic. Will d/c lithium to eliminate the possibility of worsening cognition during ECT. Will continue Clozaril and Ativan. 04/22/17 10:53 Catatonia: Excellent, though temporary benefit from initial ECT. Hope to see more lasting effect as we go. [facility]. 04/23/17 10:32 Catatonia: Continued good benefit from ECT. Will do consecutive treatments W, T, F this week due to severity of pt's illness and excellent response. 04/24/17 15:38 Catatonia: Remains severely ill. WIll plan for further acute course ECT tomorrow. 04/25/17 13:21 Catatonia: Continued benefit from ECT. WIll plan to treat tomorrow morning. 04/26/17 21:11 Catatonia: Continued improvement. CCM. 04/28/17 17:38 Catatonia: Continued improvement. He was able to carry forward benefit from treatment for 48 hours for the first time. Good sign! [facility]. Subjective: Pt seen, discussed with staff, chart reviewed. He is conversant, but upset this morning. Tearful, stating he wants to go home and see his birds. He is able to tell me their names and species as well as the naems of his cats. He is hyperaware of stimuli, especially pain. Eating and drinking adequately. Able to identify the purpose for his hospitalization and describe the nature and purpose of the treatments. He states, "I'm here to get these treatments to fix my head. I was in bad shape." He also states, however, "I think I'm well now and I want to go home." He states this is only because he wants to see his pets. I assure him that the pets are safe. Objective: Vital Signs Temp Pulse Resp BP Pulse Ox 36.9 C 102 H 16 113/72 96 04/28/17 10:15 04/28/17 12:00 04/28/17 12:00 04/28/17 12:00 04/28/17 12:00 Laboratory Results 04/19/17 10:12 04/23/17 08:10 04/27/17 04/28/17 04/29/17 05:59 05:59 05:59 Intake Total 500 400 Output Total 275 Balance 500 125 - Time Spent With Patient Time Spent With Patient: 35" ICD10 Worksheet Patient Problems: Problems Problem Status Onset Decubitus ulcer Acute
--- NOTE | 2017-04-28 17:58 | WOCRNPDOC ---
WOCRN Advanced Assessment Note - Skin Integrity Problem, Advanced Assess Right Heel Pressure Injury Dressing Type: Open to Air Site Measurement - Head-to-Toe Length X Width X Depth (cm): 2.5x2x0 Pressure Injury Stage: Deep Tissue Injury (DTI) Pressure Injury Present on Admit: Yes Skin Integrity Problem Comment: Wound is getting darker and larger. It has devolved since previous assessment and is very concerning. Heelbo is on the patient but there may be some misunderstanding about it's function. It does not offload the heel, it just helps reduce friction. They (heelbo green foam socks) do not help prevent/heal/treat the pressure injury. The patient needs to have offloading heel boots or the heel must be raised wihtout any pressure on it except for transfers at all times. The heel should not rest on any surface for more than a few minutes at a time. Ok to weight during transfers, showers, ambulation. Offload at all times when in wheelchair and in bed. MARGARET Falcon present during assessment. GALI Hall also present. Wound care will round again next week.
[2017-04-28] MEDS: cloZAPine 100 MG TAB PO SCH (20:43)
[2017-04-29] MEDS: LORazepam 1 MG TAB PO SCH ×4 (06:29→20:25)
[2017-04-29] MEDS: ACETAMINOPHEN 325 MG TAB PO PRN ×3 (06:50→20:10)
[2017-04-29] MEDS: IBUPROFEN 600 MG TAB PO PRN ×2 (10:28→19:19)
--- NOTE | 2017-04-29 16:29 | SOAPPROG ---
SOAP Progress Note Assessment/Plan: Assessment: Plan: 04/21/17 16:22 Remains catatonic. Will d/c lithium to eliminate the possibility of worsening cognition during ECT. Will continue Clozaril and Ativan. 04/22/17 10:53 Catatonia: Excellent, though temporary benefit from initial ECT. Hope to see more lasting effect as we go. [facility]. 04/23/17 10:32 Catatonia: Continued good benefit from ECT. Will do consecutive treatments W, T, F this week due to severity of pt's illness and excellent response. 04/24/17 15:38 Catatonia: Remains severely ill. WIll plan for further acute course ECT tomorrow. 04/25/17 13:21 Catatonia: Continued benefit from ECT. WIll plan to treat tomorrow morning. 04/26/17 21:11 Catatonia: Continued improvement. [facility]CM. 04/28/17 17:38 Catatonia: Continued improvement. He was able to carry forward benefit from treatment for 48 hours for the first time. Good sign! [facility]. 04/29/17 16:30 Catatonia: Doing well. [facility]. Subjective: Pt seen, discussed with staff. REPorts feeling "good." Up in chair in day room today. Re-reviewed wound care recommendations with staff. More upbeat today, though continues to talk about missing his pets. Less tearful. Eating and drinking adequately. Objective: Vital Signs Temp Pulse Resp BP Pulse Ox 36 C 95 16 105/63 96 04/29/17 06:43 04/29/17 06:43 04/29/17 06:43 04/29/17 06:43 04/29/17 06:43 Laboratory Results 04/19/17 10:12 04/23/17 08:10 04/28/17 04/29/17 04/30/17 05:59 05:59 05:59 Intake Total 400 346 600 Output Total 275 115 650 Balance 125 231 -50 MSE: Adequately groomed, cooperative and interactive. Affect is brighter, stable, approp. Mood is "good." TP generally linear. TC reveals no psychosis. A&Ox3. - Time Spent With Patient Time Spent With Patient: 25" ICD10 Worksheet Patient Problems: Problems Problem Status Onset Decubitus ulcer Acute
[2017-04-29] MEDS: cloZAPine 100 MG TAB PO SCH (20:04)
[2017-04-30] MEDS: ACETAMINOPHEN 325 MG TAB PO PRN (02:58)
[2017-04-30] MEDS ORDERED: NS 1,000 ML IV ONE (04:00)
[2017-04-30] MEDS ORDERED: ONDANSETRON DISINTEGRATING 4 MG TAB PO ONE (04:00)
[2017-04-30] MEDS ORDERED: LIDOCAINE 2% 5 ML SDV ID ONE (04:00)
[2017-04-30] MEDS ORDERED: CITRIC ACID/SODIUM CITRATE 30 ML UDCUP PO ONE (04:00)
[2017-04-30] MEDS ORDERED: ROCURONIUM 50 MG/5 ML VIAL ONE (05:33)
[2017-04-30] MEDS ORDERED: fentaNYL 100 MCG/2 ML INJ ONE (05:33)
[2017-04-30] MEDS ORDERED: SUCCINYLCHOLINE CHLORIDE 200 MG/10 ML VIAL ONE (05:33)
[2017-04-30] MEDS ORDERED: ONDANSETRON 4 MG/2 ML VIAL ONE (05:33)
[2017-04-30] MEDS ORDERED: MIDAZOLAM 2 MG/2 ML VIAL ONE (05:33)
[2017-04-30] MEDS ORDERED: GLYCOPYRROLATE 0.2 MG/1 ML VIAL ONE (05:33)
[2017-04-30] MEDS: LORazepam 1 MG TAB PO SCH ×4 (05:44→20:01)
[2017-04-30] MEDS ORDERED: ONDANSETRON DISINTEGRATING 4 MG TAB ONE (06:03)
[2017-04-30] MEDS ORDERED: CITRIC ACID/SODIUM CITRATE 30 ML UDCUP ONE (06:03)
[2017-04-30 08:18] LABS: PLATELET COUNT 252 10^3/uL (150-400)
--- NOTE | 2017-04-30 13:49 | SOAPPROG ---
SOAP Progress Note Assessment/Plan: Assessment: Plan: 04/21/17 16:22 Remains catatonic. Will d/c lithium to eliminate the possibility of worsening cognition during ECT. Will continue Clozaril and Ativan. 04/22/17 10:53 Catatonia: Excellent, though temporary benefit from initial ECT. Hope to see more lasting effect as we go. [facility]. 04/23/17 10:32 Catatonia: Continued good benefit from ECT. Will do consecutive treatments W, T, F this week due to severity of pt's illness and excellent response. 04/24/17 15:38 Catatonia: Remains severely ill. WIll plan for further acute course ECT tomorrow. 04/25/17 13:21 Catatonia: Continued benefit from ECT. WIll plan to treat tomorrow morning. 04/26/17 21:11 Catatonia: Continued improvement. [facility]. 04/28/17 17:38 Catatonia: Continued improvement. He was able to carry forward benefit from treatment for 48 hours for the first time. Good sign! [facility]. 04/29/17 16:30 Catatonia: Doing well. [facility]. 04/30/17 13:49 Catatonia: Continue improvement. [facility]. Subjective: Pt seen, discussed with staff. Reports feeling "better." Underwent ECT this morning without complication. Up in dayroom in chair later. Ate well. Asks for [employer]. Conversant and appropriate. Objective: Vital Signs Temp Pulse Resp BP Pulse Ox 36.5 C 118 H 16 108/67 92 04/30/17 07:51 04/30/17 10:24 04/30/17 10:24 04/30/17 10:24 04/30/17 10:24 Laboratory Results 04/30/17 06:45 04/23/17 08:10 04/29/17 04/30/17 05/01/17 05:59 05:59 05:59 Intake Total 346 1520 Output Total 115 900 Balance 231 620 MSE: Calm, coop, appropriately interactive. Affect is better modulated, less tearful. Mood is "better." TP generally linear, some delay and blocking at times. TC reveals no evidence of psychosis. - Time Spent With Patient Time Spent With Patient: 35" ICD10 Worksheet Patient Problems: Problems Problem Status Onset Decubitus ulcer Acute
[2017-04-30] MEDS: IBUPROFEN 600 MG TAB PO PRN (18:15)
[2017-04-30] MEDS: cloZAPine 100 MG TAB PO SCH (20:01)
[2017-05-01] MEDS: LORazepam 1 MG TAB PO SCH ×4 (06:34→19:30)
[2017-05-01] MEDS: ACETAMINOPHEN 325 MG TAB PO PRN ×2 (12:37→18:18)
[2017-05-01] MEDS: IBUPROFEN 600 MG TAB PO PRN (16:11)
--- NOTE | 2017-05-01 18:00 | SOAPPROG ---
SOAP Progress Note Assessment/Plan: Assessment: Per Dr. Burnett's notes: 04/28/17 17:38 Catatonia: Continued improvement. He was able to carry forward benefit from treatment for 48 hours for the first time. Good sign! [facility]. 04/29/17 16:30 Catatonia: Doing well. [facility]. 04/30/17 13:49 Catatonia: Continue improvement. [facility]. Plan: 05/01/17 17:56 1. Patient fell last night. Back on LOS 2. PT/OT came today to evaluate need for services after d/c 3. Next ECT tomorrow 4. CCM - continues to show sustained improvement Subjective: Met with patient, reviewed chart and d/w staff. Patient slept 5-1/2 hrs last night, was incontinent x 1, and fell out of bed while reaching for something on his bedside stand. Objective: Vital Signs Temp Pulse Resp BP Pulse Ox 36.6 C 100 14 117/76 95 05/01/17 06:00 05/01/17 06:00 05/01/17 06:00 05/01/17 06:00 05/01/17 06:00 Laboratory Results 04/30/17 06:45 04/23/17 08:10 04/30/17 05/01/17 05/02/17 05:59 05:59 05:59 Intake Total 1520 500 Output Total 900 1000 Balance 620 -500 MSE: Affect: Euthymic Mood: "OK" TP: Linear TC: No SI/HI, no AH/VH Insight/ Judgment: Fair - Time Spent With Patient Time Spent With Patient: 15" - Pending Discharge Pending Discharge Within 24 Hours: No Pending Discharge Within 48 Hours: No ICD10 Worksheet Patient Problems: Problems Problem Status Onset Decubitus ulcer Acute
[2017-05-01] MEDS: cloZAPine 100 MG TAB PO SCH (19:24)
[2017-05-02] MEDS ORDERED: CITRIC ACID/SODIUM CITRATE 30 ML UDCUP PO ONE (04:00)
[2017-05-02] MEDS ORDERED: ONDANSETRON DISINTEGRATING 4 MG TAB PO ONE (04:00)
[2017-05-02] MEDS ORDERED: NS 1,000 ML IV ONE (04:00)
[2017-05-02] MEDS ORDERED: LIDOCAINE 2% 5 ML SDV ID ONE (04:00)
[2017-05-02] MEDS ORDERED: ONDANSETRON 4 MG/2 ML VIAL ONE (05:26)
[2017-05-02] MEDS ORDERED: SUCCINYLCHOLINE CHLORIDE 200 MG/10 ML VIAL ONE (05:26)
[2017-05-02] MEDS ORDERED: fentaNYL 100 MCG/2 ML INJ ONE (05:26)
[2017-05-02] MEDS ORDERED: MIDAZOLAM 2 MG/2 ML VIAL ONE (05:26)
[2017-05-02] MEDS ORDERED: ROCURONIUM 50 MG/5 ML VIAL ONE (05:26)
[2017-05-02] MEDS ORDERED: GLYCOPYRROLATE 0.2 MG/1 ML VIAL ONE (05:26)
[2017-05-02] MEDS ORDERED: METHOHEXITAL SODIUM 500 MG/50 ML MDV ONE (05:27)
[2017-05-02] MEDS: LORazepam 1 MG TAB PO SCH ×4 (05:36→18:47)
[2017-05-02] MEDS ORDERED: ONDANSETRON DISINTEGRATING 4 MG TAB ONE (07:00)
[2017-05-02] MEDS: IBUPROFEN 600 MG TAB PO PRN ×2 (09:09→15:02)
--- NOTE | 2017-05-02 14:12 | SOAPPROG ---
SOAP Progress Note Assessment/Plan: Assessment: Plan: 04/21/17 16:22 Remains catatonic. Will d/c lithium to eliminate the possibility of worsening cognition during ECT. Will continue Clozaril and Ativan. 04/22/17 10:53 Catatonia: Excellent, though temporary benefit from initial ECT. Hope to see more lasting effect as we go. [facility]. 04/23/17 10:32 Catatonia: Continued good benefit from ECT. Will do consecutive treatments W, T, F this week due to severity of pt's illness and excellent response. 04/24/17 15:38 Catatonia: Remains severely ill. WIll plan for further acute course ECT tomorrow. 04/25/17 13:21 Catatonia: Continued benefit from ECT. WIll plan to treat tomorrow morning. 04/26/17 21:11 Catatonia: Continued improvement. CCM. 04/28/17 17:38 Catatonia: Continued improvement. He was able to carry forward benefit from treatment for 48 hours for the first time. Good sign! [facility]. 04/29/17 16:30 Catatonia: Doing well. [facility]. 04/30/17 13:49 Catatonia: Continue improvement. [facility]. 05/02/17 14:11 Catatonia: Continued improvement. CCM. May convert to voluntary status as patient is regaining decisional capacity. Subjective: Pt seen, discussed with staff. He was in good spirits this morning. Expressed understanding of need and goals for ECT. States he agrees to continue treatment. Extraordinary effort on behalf of staff to attempt to help with animals. Underwent ECT this morning without complication. Objective: Vital Signs Temp Pulse Resp BP Pulse Ox 36.5 C 119 H 20 114/72 96 05/02/17 09:55 05/02/17 11:15 05/02/17 11:15 05/02/17 11:15 05/02/17 11:15 Laboratory Results 04/30/17 06:45 04/23/17 08:10 05/01/17 05/02/17 05/03/17 05:59 05:59 05:59 Intake Total 500 1750 Output Total 1000 1650 Balance -500 100 - Time Spent With Patient Time Spent With Patient: 35" ICD10 Worksheet Patient Problems: Problems Problem Status Onset Decubitus ulcer Acute
[2017-05-02] MEDS: cloZAPine 100 MG TAB PO SCH (18:46)
[2017-05-02] MEDS: ACETAMINOPHEN 325 MG TAB PO PRN ×2 (18:50→23:03)
[2017-05-03] MEDS: LORazepam 1 MG TAB PO SCH ×4 (06:25→20:03)
[2017-05-03] MEDS: IBUPROFEN 600 MG TAB PO PRN ×2 (11:37→23:06)
[2017-05-03] MEDS: ACETAMINOPHEN 325 MG TAB PO PRN (12:27)
--- NOTE | 2017-05-03 13:47 | SOAPPROG ---
SOAP Progress Note Assessment/Plan: Assessment: Per Dr. Burnett's notes: 04/28/17 17:38 Catatonia: Continued improvement. He was able to carry forward benefit from treatment for 48 hours for the first time. Good sign! [facility]. 04/29/17 16:30 Catatonia: Doing well. [facility]. 04/30/17 13:49 Catatonia: Continue improvement. [facility]. Plan: 05/01/17 17:56 1. Patient fell last night. Back on LOS 2. PT/OT came today to evaluate need for services after d/c 3. Next ECT tomorrow 4. CCM - continues to show sustained improvement 05/03/17 13:44 1. Still on LOS, but no recent falls. 2. No skin break down on heel, staying elevated 3. Ambulating to toilet with minimal assistance, no incontinence 4. Eating > 75 % of meals 5. CCM - no changes Subjective: Met with patient, reviewed chart and d/w staff. Patient is lying in bed on side. He makes eye contact and answers MD questions with simple 1-2 word answers , but is logical and goal-directed. He at > 75% of breakfast, no incontinence last night. He denies any physical complaints. Objective: Vital Signs Temp Pulse Resp BP Pulse Ox 36.6 C 103 H 16 128/74 H 95 05/03/17 06:00 05/03/17 06:00 05/03/17 06:00 05/03/17 06:00 05/03/17 06:00 Laboratory Results 04/30/17 06:45 04/23/17 08:10 05/02/17 05/03/17 05/04/17 05:59 05:59 05:59 Intake Total 1750 510 826 Output Total 1650 1000 495 Balance 100 -490 331 MSE: Affect: Euthymic Mood: "OK" TP: Linear, goal-directed TC: Denies any SI/ HI Insight/Judgment: Fair - Time Spent With Patient Time Spent With Patient: 15" - Pending Discharge Pending Discharge Within 24 Hours: No Pending Discharge Within 48 Hours: No ICD10 Worksheet Patient Problems: Problems Problem Status Onset Decubitus ulcer Acute
[2017-05-03] MEDS: cloZAPine 100 MG TAB PO SCH (20:03)
[2017-05-04] MEDS: LORazepam 1 MG TAB PO SCH ×4 (06:43→17:37)
--- NOTE | 2017-05-04 16:01 | SOAPPROG ---
SOAP Progress Note Assessment/Plan: Assessment: Per Dr. Burnett's notes: 04/28/17 17:38 Catatonia: Continued improvement. He was able to carry forward benefit from treatment for 48 hours for the first time. Good sign! [facility]. 04/29/17 16:30 Catatonia: Doing well. [facility]. 04/30/17 13:49 Catatonia: Continue improvement. [facility]. Plan: 05/01/17 17:56 1. Patient fell last night. Back on LOS 2. PT/OT came today to evaluate need for services after d/c 3. Next ECT tomorrow 4. CCM - continues to show sustained improvement 05/03/17 13:44 1. Still on LOS, but no recent falls. 2. No skin break down on heel, staying elevated 3. Ambulating to toilet with minimal assistance, no incontinence 4. Eating > 75 % of meals 5. [facility] - no changes 05/04/17 15:57 1. Still on LOS, no falls 2. No incontinence x 48 hrs 3. Ate 100% of lunch 4. No BM recently, will order Colace 5. Patient has gained 2.8 kg in past week, from 44.6 to 47.4 6. ECT tomorrow Subjective: Met with patient, reviewed chart and d/w staff. Patient is much more active and participating in milieu activities. He went to art therapy group this AM, and sat at dining room table with peers. He ate 100% of lunch and has gained almost 7lbs in past week. He is improving significantly since starting ECT. Objective: Vital Signs Temp Pulse Resp BP Pulse Ox 35 C L 98 16 134/80 H 98 05/04/17 06:00 05/04/17 06:00 05/04/17 06:00 05/04/17 06:00 05/04/17 06:00 Laboratory Results 04/30/17 06:45 04/23/17 08:10 05/03/17 05/04/17 05/05/17 05:59 05:59 05:59 Intake Total 510 1166 Output Total 1000 495 100 Balance -490 671 -100 MSE: Affect: Euthymic Mood: "good" TP: Linear TC: No SI/HI, no AH/VH Insight /Judgment: Improved - Time Spent With Patient Time Spent With Patient: 20" - Pending Discharge Pending Discharge Within 24 Hours: No Pending Discharge Within 48 Hours: No ICD10 Worksheet Patient Problems: Problems Problem Status Onset Decubitus ulcer Acute
[2017-05-04] MEDS: IBUPROFEN 600 MG TAB PO PRN (20:37)
[2017-05-04] MEDS: DOCUSATE SODIUM 100 MG CAP PO SCH (20:37)
[2017-05-04] MEDS: cloZAPine 100 MG TAB PO SCH (20:37)
[2017-05-05] MEDS ORDERED: CITRIC ACID/SODIUM CITRATE 30 ML UDCUP PO ONE (04:00)
[2017-05-05] MEDS ORDERED: ONDANSETRON DISINTEGRATING 4 MG TAB PO ONE (04:00)
[2017-05-05] MEDS ORDERED: LIDOCAINE 2% 5 ML SDV ID ONE (04:00)
[2017-05-05] MEDS ORDERED: NS 1,000 ML IV ONE (04:00)
[2017-05-05] MEDS: LORazepam 1 MG TAB PO SCH ×4 (07:04→18:47)
[2017-05-05] MEDS ORDERED: CITRIC ACID/SODIUM CITRATE 30 ML UDCUP ONE (08:23)
[2017-05-05] MEDS ORDERED: ONDANSETRON DISINTEGRATING 4 MG TAB ONE (08:23)
[2017-05-05] MEDS ORDERED: MIDAZOLAM 2 MG/2 ML VIAL ONE (08:56)
[2017-05-05] MEDS ORDERED: fentaNYL 100 MCG/2 ML INJ ONE (08:56)
[2017-05-05] MEDS ORDERED: METHOHEXITAL SODIUM 500 MG/50 ML MDV ONE (08:57)
[2017-05-05] MEDS: DOCUSATE SODIUM 100 MG CAP PO SCH ×2 (12:31→18:47)
[2017-05-05] MEDS: ACETAMINOPHEN 325 MG TAB PO PRN ×2 (15:45→21:44)
[2017-05-05] MEDS: cloZAPine 100 MG TAB PO SCH (18:47)
[2017-05-05] MEDS: IBUPROFEN 600 MG TAB PO PRN (18:47)
--- NOTE | 2017-05-05 20:52 | SOAPPROG ---
SOAP Progress Note Assessment/Plan: Assessment: Plan: 04/21/17 16:22 Remains catatonic. Will d/c lithium to eliminate the possibility of worsening cognition during ECT. Will continue Clozaril and Ativan. 04/22/17 10:53 Catatonia: Excellent, though temporary benefit from initial ECT. Hope to see more lasting effect as we go. [facility]. 04/23/17 10:32 Catatonia: Continued good benefit from ECT. Will do consecutive treatments W, T, F this week due to severity of pt's illness and excellent response. 04/24/17 15:38 Catatonia: Remains severely ill. WIll plan for further acute course ECT tomorrow. 04/25/17 13:21 Catatonia: Continued benefit from ECT. WIll plan to treat tomorrow morning. 04/26/17 21:11 Catatonia: Continued improvement. [facility]. 04/28/17 17:38 Catatonia: Continued improvement. He was able to carry forward benefit from treatment for 48 hours for the first time. Good sign! [facility]. 04/29/17 16:30 Catatonia: Doing well. [facility]. 04/30/17 13:49 Catatonia: Continue improvement. [facility]. 05/02/17 14:11 Catatonia: Continued improvement. [facility]. May convert to voluntary status as patient is regaining decisional capacity. 05/05/17 20:51 Catatonia: Doing very well. Will continue acute course ECT through end of week for a total of 11 treatments. Need to finalize d/c plan to either home or SNF. Subjective: Pt seen, discussed with staff and Dr. Malone. Chart reviewed. He is upbeat and friendly this morning. Able to review need for continued ECT and benefits he has derived thus far. States, "I know this treatment helps me." Offered the opportunity to ask questions and he states, "I don't have any. I understand what's going on with me." Underwent bilateral ECT with no complications. Objective: Vital Signs Temp Pulse Resp BP Pulse Ox 37.0 C 119 H 16 127/90 H 96 05/05/17 10:00 05/05/17 10:00 05/05/17 10:00 05/05/17 10:00 05/05/17 10:00 Laboratory Results 04/30/17 06:45 04/23/17 08:10 05/04/17 05/05/17 05/06/17 05:59 05:59 05:59 Intake Total 1166 0 400 Output Total 495 602 Balance 671 -602 400 MSE: Calm, coop. Affect is euthymic, stable, approp. Mood is "pretty good." TP generally linear. TC reveals no overt psychosis. A&Ox3. - Time Spent With Patient Time Spent With Patient: 35" ICD10 Worksheet Patient Problems: Problems Problem Status Onset Decubitus ulcer Acute
[2017-05-06] MEDS: LORazepam 1 MG TAB PO SCH ×4 (06:09→18:21)
[2017-05-06] MEDS: DOCUSATE SODIUM 100 MG CAP PO SCH ×2 (08:13→20:51)
--- NOTE | 2017-05-06 11:49 | SOAPPROG ---
SOAP Progress Note Assessment/Plan: Assessment: Plan: 04/21/17 16:22 Remains catatonic. Will d/c lithium to eliminate the possibility of worsening cognition during ECT. Will continue Clozaril and Ativan. 04/22/17 10:53 Catatonia: Excellent, though temporary benefit from initial ECT. Hope to see more lasting effect as we go. CCM. 04/23/17 10:32 Catatonia: Continued good benefit from ECT. Will do consecutive treatments W, T, F this week due to severity of pt's illness and excellent response. 04/24/17 15:38 Catatonia: Remains severely ill. WIll plan for further acute course ECT tomorrow. 04/25/17 13:21 Catatonia: Continued benefit from ECT. WIll plan to treat tomorrow morning. 04/26/17 21:11 Catatonia: Continued improvement. CCM. 04/28/17 17:38 Catatonia: Continued improvement. He was able to carry forward benefit from treatment for 48 hours for the first time. Good sign! CCM. 04/29/17 16:30 Catatonia: Doing well. CCM. 04/30/17 13:49 Catatonia: Continue improvement. CCM. 05/02/17 14:11 Catatonia: Continued improvement. CCM. May convert to voluntary status as patient is regaining decisional capacity. 05/05/17 20:51 Catatonia: Doing very well. Will continue acute course ECT through end of week for a total of 11 treatments. Need to finalize d/c plan to either home or SNF. 05/06/17 11:49 Catatonia: Continued improvement. CCM including voluntary ECT. Subjective: Pt seen, discussed with staff. Reports feeling "OK." Continues to spend most of his time in bed. Interactive and appropriate. Agrees to continued ECT treatment. Discussed ongoing treatment plan and discharge plan. He does not remember going to the SNF after his hip surgery. Await PT eval this afternoon. Remains on LOS due to fall risk. Objective: Vital Signs Temp Pulse Resp BP Pulse Ox 36.7 C 99 14 134/69 H 94 05/06/17 06:00 05/06/17 06:00 05/06/17 06:00 05/06/17 06:00 05/06/17 06:00 Laboratory Results 04/30/17 06:45 04/23/17 08:10 05/05/17 05/06/17 05/07/17 05:59 05:59 05:59 Intake Total 0 400 Output Total 602 Balance -602 400 MSE: Calm, coop. Affect is constricted, stable. Mood is "OK." TP linear. TC reveals no psychosis. A&Ox3. - Time Spent With Patient Time Spent With Patient: 15" ICD10 Worksheet Patient Problems: Problems Problem Status Onset Decubitus ulcer Acute
[2017-05-06] MEDS: IBUPROFEN 600 MG TAB PO PRN ×2 (13:23→20:55)
[2017-05-06] MEDS: ACETAMINOPHEN 325 MG TAB PO PRN (14:13)
[2017-05-06] MEDS: cloZAPine 100 MG TAB PO SCH (20:51)
[2017-05-07] MEDS ORDERED: ONDANSETRON DISINTEGRATING 4 MG TAB PO ONE (04:00)
[2017-05-07] MEDS ORDERED: LIDOCAINE 2% 5 ML SDV ID ONE (04:00)
[2017-05-07] MEDS ORDERED: NS 1,000 ML IV ONE (04:00)
[2017-05-07] MEDS ORDERED: CITRIC ACID/SODIUM CITRATE 30 ML UDCUP PO ONE (04:00)
[2017-05-07] MEDS: LORazepam 1 MG TAB PO SCH ×4 (05:21→20:14)
[2017-05-07] MEDS ORDERED: METHOHEXITAL SODIUM 500 MG/50 ML MDV ONE (06:34)
[2017-05-07] MEDS ORDERED: fentaNYL 100 MCG/2 ML INJ ONE (06:34)
[2017-05-07] MEDS ORDERED: MIDAZOLAM 2 MG/2 ML VIAL ONE (06:34)
[2017-05-07] MEDS ORDERED: ONDANSETRON DISINTEGRATING 4 MG TAB ONE (07:54)
[2017-05-07] MEDS ORDERED: CITRIC ACID/SODIUM CITRATE 30 ML UDCUP ONE (07:54)
[2017-05-07] MEDS: ACETAMINOPHEN 325 MG TAB PO PRN (11:30)
[2017-05-07] MEDS: DOCUSATE SODIUM 100 MG CAP PO SCH ×2 (11:30→20:14)
--- NOTE | 2017-05-07 15:31 | SOAPPROG ---
SOAP Progress Note Assessment/Plan: Assessment: Plan: 04/21/17 16:22 Remains catatonic. Will d/c lithium to eliminate the possibility of worsening cognition during ECT. Will continue Clozaril and Ativan. 04/22/17 10:53 Catatonia: Excellent, though temporary benefit from initial ECT. Hope to see more lasting effect as we go. [facility]. 04/23/17 10:32 Catatonia: Continued good benefit from ECT. Will do consecutive treatments W, T, F this week due to severity of pt's illness and excellent response. 04/24/17 15:38 Catatonia: Remains severely ill. WIll plan for further acute course ECT tomorrow. 04/25/17 13:21 Catatonia: Continued benefit from ECT. WIll plan to treat tomorrow morning. 04/26/17 21:11 Catatonia: Continued improvement. CCM. 04/28/17 17:38 Catatonia: Continued improvement. He was able to carry forward benefit from treatment for 48 hours for the first time. Good sign! [facility]CM. 04/29/17 16:30 Catatonia: Doing well. CCM. 04/30/17 13:49 Catatonia: Continue improvement. CCM. 05/02/17 14:11 Catatonia: Continued improvement. CCM. May convert to voluntary status as patient is regaining decisional capacity. 05/05/17 20:51 Catatonia: Doing very well. Will continue acute course ECT through end of week for a total of 11 treatments. Need to finalize d/c plan to either home or SNF. 05/06/17 11:49 Catatonia: Continued improvement. CCM including voluntary ECT. 05/07/17 15:31 Catatonia: Resolving. CCM. Subjective: Pt seen, discussed with staff. Reports feeling "pretty good." Underwent ECT this morning without complication. Discussed d/c plan with him again. He favors going directly home, but seems to underestimate his care needs. Remains compliant with meds. MMSE decreased today with poor effort early in the morning. No observed signs of delirium or decrease in cognitive function. Objective: Vital Signs Temp Pulse Resp BP Pulse Ox 36.5 C 121 H 14 106/71 94 05/07/17 11:25 05/07/17 11:25 05/07/17 11:25 05/07/17 11:25 05/07/17 11:25 Laboratory Results 04/30/17 06:45 04/23/17 08:10 05/06/17 05/07/17 05/08/17 05:59 05:59 05:59 Intake Total 400 1005 Balance 400 1005 MSE: Calm, coop. Interacts well. Affect is blunted, stable, approp. Mood is "pretty good." TP linear. TC reveals no psychosis. A&Ox3. - Time Spent With Patient Time Spent With Patient: 35" ICD10 Worksheet Patient Problems: Problems Problem Status Onset Decubitus ulcer Acute
[2017-05-07] MEDS: IBUPROFEN 600 MG TAB PO PRN (20:13)
[2017-05-07] MEDS: cloZAPine 100 MG TAB PO SCH (20:13)
[2017-05-08] MEDS: ACETAMINOPHEN 325 MG TAB PO PRN (03:35)
[2017-05-08] MEDS: LORazepam 1 MG TAB PO SCH ×4 (06:12→20:15)
[2017-05-08] MEDS: DOCUSATE SODIUM 100 MG CAP PO SCH ×2 (08:44→20:13)
[2017-05-08] MEDS: IBUPROFEN 600 MG TAB PO PRN ×2 (09:03→22:38)
--- NOTE | 2017-05-08 14:30 | SOAPPROG ---
SOAP Progress Note Assessment/Plan: Assessment: Plan: 04/21/17 16:22 Remains catatonic. Will d/c lithium to eliminate the possibility of worsening cognition during ECT. Will continue Clozaril and Ativan. 04/22/17 10:53 Catatonia: Excellent, though temporary benefit from initial ECT. Hope to see more lasting effect as we go. [facility]. 04/23/17 10:32 Catatonia: Continued good benefit from ECT. Will do consecutive treatments W, T, F this week due to severity of pt's illness and excellent response. 04/24/17 15:38 Catatonia: Remains severely ill. WIll plan for further acute course ECT tomorrow. 04/25/17 13:21 Catatonia: Continued benefit from ECT. WIll plan to treat tomorrow morning. 04/26/17 21:11 Catatonia: Continued improvement. CCM. 04/28/17 17:38 Catatonia: Continued improvement. He was able to carry forward benefit from treatment for 48 hours for the first time. Good sign! [facility]. 04/29/17 16:30 Catatonia: Doing well. [facility]. 04/30/17 13:49 Catatonia: Continue improvement. CCM. 05/02/17 14:11 Catatonia: Continued improvement. CCM. May convert to voluntary status as patient is regaining decisional capacity. 05/05/17 20:51 Catatonia: Doing very well. Will continue acute course ECT through end of week for a total of 11 treatments. Need to finalize d/c plan to either home or SNF. 05/06/17 11:49 Catatonia: Continued improvement. [facility] including voluntary ECT. 05/07/17 15:31 Catatonia: Resolving. CCM. 05/08/17 14:29 Catatonia: Continued improvement. Will treat again tomorrow, consider discontinuation of treatment in next week. Continue d/c planning. Subjective: Pt seen, discussed with staff. Lying in bed, though interactive, alert. States he still wants [employer] and I agreed to get him some for dinner. He states he feels "pretty good." Conversant and appropriate. Discussed d/c plan again. He is not against going to SNF for rehab after d/c. Objective: Vital Signs Temp Pulse Resp BP Pulse Ox 36.2 C 107 H 20 119/92 H 96 05/08/17 06:00 05/08/17 06:00 05/08/17 06:00 05/08/17 06:00 05/08/17 06:00 Laboratory Results 04/30/17 06:45 04/23/17 08:10 05/07/17 05/08/17 05/09/17 05:59 05:59 05:59 Intake Total 1005 540 Output Total 700 Balance 1005 -160 - Time Spent With Patient Time Spent With Patient: 15" ICD10 Worksheet Patient Problems: Problems Problem Status Onset Decubitus ulcer Acute
[2017-05-08] MEDS: cloZAPine 100 MG TAB PO SCH (20:13)
[2017-05-09] MEDS ORDERED: NS 1,000 ML IV ONE (00:33)
[2017-05-09] MEDS ORDERED: ONDANSETRON DISINTEGRATING 4 MG TAB PO ONE (00:33)
[2017-05-09] MEDS ORDERED: CITRIC ACID/SODIUM CITRATE 30 ML UDCUP PO ONE (00:33)
[2017-05-09] MEDS ORDERED: THEOPHYLLINE ORAL SOLUTION 80 MG/15 ML UDCUP PO ONE ×2 (00:33→04:30)
[2017-05-09] MEDS ORDERED: LIDOCAINE 2% 5 ML SDV ID ONE (00:33)
[2017-05-09] MEDS: LORazepam 1 MG TAB PO SCH ×4 (06:09→21:01)
[2017-05-09] MEDS ORDERED: ONDANSETRON DISINTEGRATING 4 MG TAB ONE (06:13)
[2017-05-09] MEDS ORDERED: CITRIC ACID/SODIUM CITRATE 30 ML UDCUP ONE (06:13)
[2017-05-09] MEDS ORDERED: MIDAZOLAM 2 MG/2 ML VIAL ONE (07:08)
[2017-05-09] MEDS ORDERED: fentaNYL 100 MCG/2 ML INJ ONE (07:08)
[2017-05-09] MEDS: DOCUSATE SODIUM 100 MG CAP PO SCH ×2 (08:59→21:00)
[2017-05-09] MEDS: ACETAMINOPHEN 325 MG TAB PO PRN (18:35)
[2017-05-09] MEDS: cloZAPine 100 MG TAB PO SCH (21:01)
[2017-05-10] MEDS: IBUPROFEN 600 MG TAB PO PRN ×2 (04:08→14:27)
[2017-05-10] MEDS: LORazepam 1 MG TAB PO SCH ×4 (05:43→19:22)
[2017-05-10] MEDS: DOCUSATE SODIUM 100 MG CAP PO SCH ×2 (08:49→19:22)
--- NOTE | 2017-05-10 14:11 | SOAPPROG ---
SOAP Progress Note Assessment/Plan: Assessment: 05/10/17 11:29 per staff, slept 8.5hr last night. has been staying in room more over the last few days, slept last night until 10am this morning when up for bkfst. is getting up to use bathroom with assistance. has sitter in room due to fall risk. per staff, areas of skin breakdown are improving on wound care checks. has been eating meals. on interview, pt remained in bed but made eye contact. lying comfortably on side. thin CM. low vol voice, nml rate. mood "okay", affect constricted but smiling appropriately. denied ah/vh or any si/hi. linear, brief goal-directed responses. oriented to person, "hospital", but did not know month/year- "july? august? 2019?" has been improving with ECT. denied any physical complaints except R LE pain, pointed to meyer, knee, +/- calf. unable to clearly state if this is new or chronic pain. no calf tenderness on exam. PLAN: continue current meds and ECT as scheduled asked hospitalist Dr. Higgins to see pt briefly regarding RLE to r/o DVT, since pt questionably reliable historian, staff report pt laying in bed more for last several days, hx of catatonia Objective: Vital Signs Temp Pulse Resp BP Pulse Ox 36.2 C 99 16 133/74 H 97 05/09/17 08:38 05/10/17 10:04 05/10/17 10:04 05/10/17 10:04 05/10/17 10:04 Laboratory Results 04/30/17 06:45 04/23/17 08:10 05/09/17 05/10/17 05/11/17 05:59 05:59 05:59 Intake Total 1000 1300 Output Total 400 500 Balance 600 800 - Time Spent With Patient Time Spent With Patient: 15min - Pending Discharge Pending Discharge Within 24 Hours: No Pending Discharge Within 48 Hours: No ICD10 Worksheet Patient Problems: Problems Problem Status Onset Decubitus ulcer Acute
--- NOTE | 2017-05-10 15:25 | HOSPPROG ---
Hospitalist Progress Note Assessment/Plan: Asked to examine right legs for potential swelling and pain, concern for DVT No CP or SOB He has been having intermittent mild tachycardia since admission, none currently able to take deep breath, negative Resp ROS no calf pain to either leg, no swelling to either leg #?right Calf pain and swelling: none appreciated on exam or per the pt's report. He reports NO pain bilaterally #SPCMN #Tachycardia, unclear cause, not symptomatic #Catatonia Very low suspicion for VTE. Given persistent tachycardia and concern from staff that he has reported right leg pain, will obtain a D-Dimer. If elevated, then get CTA chest. Normal renal function Negative exam for DVT. If CTA is obtained and positive, would check US of LE. Subjective: no leg pain. no cp or sob. Objective: Vital Signs Temp Pulse Resp BP Pulse Ox 36.2 C 99 16 133/74 H 97 05/09/17 08:38 05/10/17 10:04 05/10/17 10:04 05/10/17 10:04 05/10/17 10:04 Laboratory Results 04/30/17 06:45 04/23/17 08:10 05/09/17 05/10/17 05/11/17 05:59 05:59 05:59 Intake Total 1000 1300 Output Total 400 500 Balance 600 800 - Physical Exam Constitutional: no apparent distress Eyes: PERRL, EOMI Ears, Nose, Mouth, Throat: moist mucous membranes, hearing normal Cardiovascular: regular rate and rhythym, No edema Respiratory: no respiratory distress, no rales or rhonchi, clear to auscultation Gastrointestinal: normoactive bowel sounds Skin: warm Lymph, Heme, Immunologic: No petechiae ICD10 Worksheet Patient Problems: Problems Problem Status Onset Decubitus ulcer Acute
[2017-05-10] MEDS: cloZAPine 100 MG TAB PO SCH (19:22)
[2017-05-11] MEDS: IBUPROFEN 600 MG TAB PO PRN (01:24)
[2017-05-11] MEDS: LORazepam 1 MG TAB PO SCH ×4 (05:51→19:05)
[2017-05-11] MEDS: DOCUSATE SODIUM 100 MG CAP PO SCH ×2 (09:09→19:17)
[2017-05-11] MEDS ORDERED: IOPAMIDOL (ISOVUE 370) 100 ML BTL IV ONE (13:43)
[2017-05-11] MEDS: cloZAPine 100 MG TAB PO SCH (19:17)
[2017-05-12] MEDS: LORazepam 1 MG TAB PO SCH ×4 (00:16→20:46)
[2017-05-12] MEDS ORDERED: NS 1,000 ML IV ONE (04:00)
[2017-05-12] MEDS ORDERED: ONDANSETRON DISINTEGRATING 4 MG TAB PO ONE (04:00)
[2017-05-12] MEDS ORDERED: CITRIC ACID/SODIUM CITRATE 30 ML UDCUP PO ONE (04:00)
[2017-05-12] MEDS ORDERED: LIDOCAINE 2% 5 ML SDV ID ONE (04:00)
[2017-05-12] MEDS ORDERED: THEOPHYLLINE ORAL SOLUTION 80 MG/15 ML UDCUP PO ONE (04:00)
--- NOTE | 2017-05-12 09:43 | SOAPPROG ---
SOAP Progress Note Assessment/Plan: Assessment: 05/10/17 11:29 per staff, slept 8.5hr last night. has been staying in room more over the last few days, slept last night until 10am this morning when up for bkfst. is getting up to use bathroom with assistance. has sitter in room due to fall risk. per staff, areas of skin breakdown are improving on wound care checks. has been eating meals. on interview, pt remained in bed but made eye contact. lying comfortably on side. thin CM. low vol voice, nml rate. mood "okay", affect constricted but smiling appropriately. denied ah/vh or any si/hi. linear, brief goal-directed responses. oriented to person, "hospital", but did not know month/year- "july? august? 2019?" has been improving with ECT. denied any physical complaints except R LE pain, pointed to meyer, knee, +/- calf. unable to clearly state if this is new or chronic pain. no calf tenderness on exam. PLAN: continue current meds and ECT as scheduled asked hospitalist Dr. Higgins to see pt briefly regarding RLE to r/o DVT, since pt questionably reliable historian, staff report pt laying in bed more for last several days, hx of catatonia Objective: Vital Signs Temp Pulse Resp BP Pulse Ox 36.3 C 106 H 12 119/85 H 100 05/12/17 09:00 05/12/17 09:00 05/12/17 09:00 05/12/17 09:00 05/12/17 09:00 Laboratory Results 04/30/17 06:45 05/11/17 06:05 05/11/17 05/12/17 05/13/17 05:59 05:59 05:59 Intake Total 750 740 Balance 750 740 - Time Spent With Patient Time Spent With Patient: 15min - Pending Discharge Pending Discharge Within 24 Hours: No Pending Discharge Within 48 Hours: No ICD10 Worksheet Patient Problems: Problems Problem Status Onset Decubitus ulcer Acute
--- NOTE | 2017-05-12 09:56 | SOAPPROG ---
SOAP Progress Note Assessment/Plan: Assessment: 05/10/17 11:29 per staff, slept 8.5hr last night. has been staying in room more over the last few days, slept last night until 10am this morning when up for bkfst. is getting up to use bathroom with assistance. has sitter in room due to fall risk. per staff, areas of skin breakdown are improving on wound care checks. has been eating meals. on interview, pt remained in bed but made eye contact. lying comfortably on side. thin CM. low vol voice, nml rate. mood "okay", affect constricted but smiling appropriately. denied ah/vh or any si/hi. linear, brief goal-directed responses. oriented to person, "hospital", but did not know month/year- "july? august? 2019?" has been improving with ECT. denied any physical complaints except R LE pain, pointed to meyer, knee, +/- calf. unable to clearly state if this is new or chronic pain. no calf tenderness on exam. PLAN: continue current meds and ECT as scheduled asked hospitalist Dr. Higgins to see pt briefly regarding RLE to r/o DVT, since pt questionably reliable historian, staff report pt laying in bed more for last several days, hx of catatonia 05/11/17 17:49 slept most of day yesterday, remained in bed except for meals, bathroom staff will assist pt for shower today and shave pt reports feeling fine, no complaints, smiling in friendly manner, no evid of acute psychosis, denied ah/vh/si. went for CT chest today since with elev D-dimer and tachycardia. PLAN: no change with ECT/psychiatric treatment CT neg for PE but noted with spiculated L lung nodule with recommendation for f/ u PET CT within month to eval Objective: Vital Signs Temp Pulse Resp BP Pulse Ox 36.3 C 106 H 12 119/85 H 100 05/12/17 09:00 05/12/17 09:00 05/12/17 09:00 05/12/17 09:00 05/12/17 09:00 Laboratory Results 04/30/17 06:45 05/11/17 06:05 05/11/17 05/12/17 05/13/17 05:59 05:59 05:59 Intake Total 750 740 Balance 750 740 - Time Spent With Patient Time Spent With Patient: 15min - Pending Discharge Pending Discharge Within 24 Hours: No Pending Discharge Within 48 Hours: No ICD10 Worksheet Patient Problems: Problems Problem Status Onset Decubitus ulcer Acute
[2017-05-12] MEDS: DOCUSATE SODIUM 100 MG CAP PO SCH ×2 (10:20→20:47)
--- NOTE | 2017-05-12 14:22 | SOAPPROG ---
SOAP Progress Note Assessment/Plan: Assessment: Plan: 04/21/17 16:22 Remains catatonic. Will d/c lithium to eliminate the possibility of worsening cognition during ECT. Will continue Clozaril and Ativan. 04/22/17 10:53 Catatonia: Excellent, though temporary benefit from initial ECT. Hope to see more lasting effect as we go. [facility]. 04/23/17 10:32 Catatonia: Continued good benefit from ECT. Will do consecutive treatments W, T, F this week due to severity of pt's illness and excellent response. 04/24/17 15:38 Catatonia: Remains severely ill. WIll plan for further acute course ECT tomorrow. 04/25/17 13:21 Catatonia: Continued benefit from ECT. WIll plan to treat tomorrow morning. 04/26/17 21:11 Catatonia: Continued improvement. CCM. 04/28/17 17:38 Catatonia: Continued improvement. He was able to carry forward benefit from treatment for 48 hours for the first time. Good sign! CCM. 04/29/17 16:30 Catatonia: Doing well. CCM. 04/30/17 13:49 Catatonia: Continue improvement. CCM. 05/02/17 14:11 Catatonia: Continued improvement. CCM. May convert to voluntary status as patient is regaining decisional capacity. 05/05/17 20:51 Catatonia: Doing very well. Will continue acute course ECT through end of week for a total of 11 treatments. Need to finalize d/c plan to either home or SNF. 05/06/17 11:49 Catatonia: Continued improvement. CCM including voluntary ECT. 05/07/17 15:31 Catatonia: Resolving. CCM. 05/08/17 14:29 Catatonia: Continued improvement. Will treat again tomorrow, consider discontinuation of treatment in next week. Continue d/c planning. 05/12/17 14:22 Catatonia: Resolved. Will hold further ECT at this time to limit any negative effects on his ability to participate in rehab. Continue current meds and d/c planning. Subjective: Pt seen, discussed with staff, chart reviewed. Case reviewed with Dr. Andrade. He had an uneventful weekend. Remains virtually bed bound. Unable to ambulate without assistance. Continues to c/o hip pain. Had full w/u for DVT/PE this weekend that was negative. Incidental finding of lesion in his lower, posterior left lung. Underwent ECT this morning without complication. Objective: Vital Signs Temp Pulse Resp BP Pulse Ox 36.3 C 106 H 12 119/85 H 100 05/12/17 09:00 05/12/17 09:00 05/12/17 09:00 05/12/17 09:00 05/12/17 09:00 Laboratory Results 04/30/17 06:45 05/11/17 06:05 05/11/17 05/12/17 05/13/17 05:59 05:59 05:59 Intake Total 750 740 Balance 750 740 MSE: Calm, coop. Well-oriented, knows me by name and the name and purpose of the treatment. Affect is euthymic, smiling appropriately. Mood is "OK." TP linear, abbreviated. TC reveals no evidence of psychosis. - Time Spent With Patient Time Spent With Patient: 35" ICD10 Worksheet Patient Problems: Problems Problem Status Onset Decubitus ulcer Acute
[2017-05-12] MEDS: cloZAPine 100 MG TAB PO SCH (20:46)
[2017-05-13] MEDS: LORazepam 1 MG TAB PO SCH ×4 (06:22→19:47)
[2017-05-13] MEDS: DOCUSATE SODIUM 100 MG CAP PO SCH ×2 (08:35→19:47)
--- NOTE | 2017-05-13 11:17 | SOAPPROG ---
SOAP Progress Note Assessment/Plan: Assessment: Plan: 04/21/17 16:22 Remains catatonic. Will d/c lithium to eliminate the possibility of worsening cognition during ECT. Will continue Clozaril and Ativan. 04/22/17 10:53 Catatonia: Excellent, though temporary benefit from initial ECT. Hope to see more lasting effect as we go. [facility]. 04/23/17 10:32 Catatonia: Continued good benefit from ECT. Will do consecutive treatments W, T, F this week due to severity of pt's illness and excellent response. 04/24/17 15:38 Catatonia: Remains severely ill. WIll plan for further acute course ECT tomorrow. 04/25/17 13:21 Catatonia: Continued benefit from ECT. WIll plan to treat tomorrow morning. 04/26/17 21:11 Catatonia: Continued improvement. CCM. 04/28/17 17:38 Catatonia: Continued improvement. He was able to carry forward benefit from treatment for 48 hours for the first time. Good sign! [facility]. 04/29/17 16:30 Catatonia: Doing well. CCM. 04/30/17 13:49 Catatonia: Continue improvement. CCM. 05/02/17 14:11 Catatonia: Continued improvement. CCM. May convert to voluntary status as patient is regaining decisional capacity. 05/05/17 20:51 Catatonia: Doing very well. Will continue acute course ECT through end of week for a total of 11 treatments. Need to finalize d/c plan to either home or SNF. 05/06/17 11:49 Catatonia: Continued improvement. CCM including voluntary ECT. 05/07/17 15:31 Catatonia: Resolving. CCM. 05/08/17 14:29 Catatonia: Continued improvement. Will treat again tomorrow, consider discontinuation of treatment in next week. Continue d/c planning. 05/12/17 14:22 Catatonia: Resolved. Will hold further ECT at this time to limit any negative effects on his ability to participate in rehab. Continue current meds and d/c planning. 05/13/17 11:17 Catatonia: Continues to do well. Will CCM, continue d/c planning. Subjective: Pt seen, discussed with staff. Continues to do well. Up to breakfast and morning group in chair. Alert and interactive with me. C/o continued hip pain, no pain in LE's. Denied by inpatient rehab. CC pursuing SNF placement. Objective: Vital Signs Temp Pulse Resp BP Pulse Ox 36.9 C 105 H 16 127/62 H 94 05/13/17 05:23 05/13/17 05:23 05/13/17 05:23 05/13/17 05:23 05/13/17 05:23 Laboratory Results 04/30/17 06:45 05/11/17 06:05 05/12/17 05/13/17 05/14/17 05:59 05:59 05:59 Intake Total 740 1080 300 Balance 740 1080 300 MSE: Calm, coop, interactive. Affect is constricted, but he does smile appropriately. Mood is "good." TP linear. TC reveals no psychosis. A&Ox3. - Time Spent With Patient Time Spent With Patient: 15" ICD10 Worksheet Patient Problems: Problems Problem Status Onset Decubitus ulcer Acute
--- NOTE | 2017-05-13 13:22 | WOCRNPDOC ---
WOCRN Advanced Assessment Note - Skin Integrity Problem, Advanced Assess Right Heel Pressure Injury Dressing Type: Open to Air Exudate Amount: None Exudate Characteristic(s): None Cari Wound Tissue: Intact Cari Wound Swelling: None Wound Bed Color: Purple Wound Bed Constitution: Intact Sanguineous Blister (flat, non-fluctuant, fluid reabsorbed) Site Odor: None Site Measurement - Head-to-Toe Length X Width X Depth (cm): [id number] Pressure Injury Stage: Deep Tissue Injury (DTI) Pressure Injury Present on Admit: Yes Skin Integrity Problem Comment: Dark purple tissue noted over posterior heel, appearance consistent w/ flat sanguinous blister that has reabsorbed while overlying skin remains intact. This is an evolving deep tissue injury, appears stable and non-fluctuant. No periwound erythema or swelling observed. Will continue w/ off-loading heel boot when patient is in bed.
[2017-05-13] MEDS: cloZAPine 100 MG TAB PO SCH (19:47)
[2017-05-14] MEDS: LORazepam 1 MG TAB PO SCH ×4 (06:19→21:26)
[2017-05-14] MEDS: DOCUSATE SODIUM 100 MG CAP PO SCH ×2 (08:14→21:26)
--- NOTE | 2017-05-14 14:25 | SOAPPROG ---
SOAP Progress Note Assessment/Plan: Assessment: Plan: 04/21/17 16:22 Remains catatonic. Will d/c lithium to eliminate the possibility of worsening cognition during ECT. Will continue Clozaril and Ativan. 04/22/17 10:53 Catatonia: Excellent, though temporary benefit from initial ECT. Hope to see more lasting effect as we go. [facility]. 04/23/17 10:32 Catatonia: Continued good benefit from ECT. Will do consecutive treatments W, T, F this week due to severity of pt's illness and excellent response. 04/24/17 15:38 Catatonia: Remains severely ill. WIll plan for further acute course ECT tomorrow. 04/25/17 13:21 Catatonia: Continued benefit from ECT. WIll plan to treat tomorrow morning. 04/26/17 21:11 Catatonia: Continued improvement. CCM. 04/28/17 17:38 Catatonia: Continued improvement. He was able to carry forward benefit from treatment for 48 hours for the first time. Good sign! CCM. 04/29/17 16:30 Catatonia: Doing well. CCM. 04/30/17 13:49 Catatonia: Continue improvement. CCM. 05/02/17 14:11 Catatonia: Continued improvement. CCM. May convert to voluntary status as patient is regaining decisional capacity. 05/05/17 20:51 Catatonia: Doing very well. Will continue acute course ECT through end of week for a total of 11 treatments. Need to finalize d/c plan to either home or SNF. 05/06/17 11:49 Catatonia: Continued improvement. CCM including voluntary ECT. 05/07/17 15:31 Catatonia: Resolving. CCM. 05/08/17 14:29 Catatonia: Continued improvement. Will treat again tomorrow, consider discontinuation of treatment in next week. Continue d/c planning. 05/12/17 14:22 Catatonia: Resolved. Will hold further ECT at this time to limit any negative effects on his ability to participate in rehab. Continue current meds and d/c planning. 05/13/17 11:17 Catatonia: Continues to do well. Will CCM, continue d/c planning. 05/14/17 14:26 Catatonia: Stable thus far. CCM. Continue active d/c planning. Subjective: Pt seen, discussed with staff. Reports feeling "good." Interacts well. Eating and sleeping well. Discussed d/c plan in team meeting. Looking for SNF. Objective: Vital Signs Temp Pulse Resp BP Pulse Ox 36.3 C 107 H 16 137/83 H 97 05/14/17 04:41 05/14/17 04:41 05/14/17 04:41 05/14/17 04:41 05/14/17 04:41 Laboratory Results 04/30/17 06:45 05/11/17 06:05 05/13/17 05/14/17 05/15/17 05:59 05:59 05:59 Intake Total 1080 700 550 Output Total 550 Balance 1080 150 550 MSE: Calm, coop. Affect is blunted, stable, appropriate. Mood is "good." TP linear, though abbreviated. TC reveals no psychosis. - Time Spent With Patient Time Spent With Patient: 15" ICD10 Worksheet Patient Problems: Problems Problem Status Onset Decubitus ulcer Acute
[2017-05-14] MEDS: cloZAPine 100 MG TAB PO SCH (21:26)
[2017-05-14] MEDS: ACETAMINOPHEN 325 MG TAB PO PRN (22:29)
[2017-05-15] MEDS: LORazepam 1 MG TAB PO SCH ×4 (05:46→21:07)
[2017-05-15] MEDS: DOCUSATE SODIUM 100 MG CAP PO SCH ×2 (11:09→21:07)
--- NOTE | 2017-05-15 15:12 | SOAPPROG ---
SOAP Progress Note Assessment/Plan: Assessment: Per Dr. Burnett's notes: 05/12/17 14:22 Catatonia: Resolved. Will hold further ECT at this time to limit any negative effects on his ability to participate in rehab. Continue current meds and d/c planning. 05/13/17 11:17 Catatonia: Continues to do well. Will CCM, continue d/c planning. 05/14/17 14:26 Catatonia: Stable thus far. CCM. Continue active d/c planning. Subjective: Pt seen, discussed with staff. Reports feeling "good." Interacts well. Eating and sleeping well. Discussed d/c plan in team meeting. Looking for SNF. Plan: 05/15/17 15:08 1. Ate > 75% of meals last night and today. 2. Patient ambulating with walker. 3. Looking for placement in subacute rehab facility. 4. No further ECT tx Subjective: Met with patient, reviewed chart and d/w staff. Patient eating well, but slept only 4 hrs last night d/t being on LOS in day room. Otherwise patient shows significant improvement with ADL's, ambulating with assistance from walker. Looking for placement at SNF for further rehab. Objective: Vital Signs Temp Pulse Resp BP Pulse Ox 36.3 C 105 H 16 115/77 96 05/14/17 04:41 05/15/17 01:42 05/15/17 01:42 05/15/17 01:42 05/15/17 01:42 Laboratory Results 04/30/17 06:45 05/11/17 06:05 05/14/17 05/15/17 05/16/17 05:59 05:59 05:59 Intake Total 700 550 Output Total 550 300 Balance 150 250 MSE: Mood: "OK" Affect: Euthymic TP: Linear TC: Denies any SI/HI, no evidence of psychosis Insight/Judgment: Fair - Time Spent With Patient Time Spent With Patient: 15" - Pending Discharge Pending Discharge Within 24 Hours: No Pending Discharge Within 48 Hours: No ICD10 Worksheet Patient Problems: Problems Problem Status Onset Decubitus ulcer Acute
[2017-05-15] MEDS: ACETAMINOPHEN 325 MG TAB PO PRN (16:25)
[2017-05-15] MEDS: cloZAPine 100 MG TAB PO SCH (21:07)
[2017-05-16] MEDS: IBUPROFEN 600 MG TAB PO PRN (01:11)
[2017-05-16] MEDS: LORazepam 1 MG TAB PO SCH ×4 (06:31→19:43)
[2017-05-16] MEDS: DOCUSATE SODIUM 100 MG CAP PO SCH ×2 (08:30→19:43)
--- NOTE | 2017-05-16 13:56 | SOAPPROG ---
SOAP Progress Note Assessment/Plan: Assessment: Per Dr. Burnett's notes: 05/12/17 14:22 Catatonia: Resolved. Will hold further ECT at this time to limit any negative effects on his ability to participate in rehab. Continue current meds and d/c planning. 05/13/17 11:17 Catatonia: Continues to do well. Will CCM, continue d/c planning. 05/14/17 14:26 Catatonia: Stable thus far. CCM. Continue active d/c planning. Subjective: Pt seen, discussed with staff. Reports feeling "good." Interacts well. Eating and sleeping well. Discussed d/c plan in team meeting. Looking for SNF. Plan: 05/15/17 15:08 1. Ate > 75% of meals last night and today. 2. Patient ambulating with walker. 3. Looking for placement in subacute rehab facility. 4. No further ECT tx 05/16/17 13:54 1. Continues to eat most of meals, ambulates with walker. 2. Remains on LOS for fall risk d/t de-conditioning. 3. Awaiting placement at [facility], possibly next week. Subjective: Met with patient, reviewed chart and d/w staff. Patient is seated at dining room table, just finished eating lunch. He says he is feeling "good" and having an "OK" day. He denies any complaints. Feels "much better" since admission. Objective: Vital Signs Temp Pulse Resp BP Pulse Ox 36.4 C 101 H 18 118/79 97 05/16/17 07:40 05/16/17 07:40 05/16/17 07:40 05/16/17 07:40 05/16/17 07:40 Laboratory Results 04/30/17 06:45 05/11/17 06:05 05/15/17 05/16/17 05/17/17 05:59 05:59 05:59 Intake Total 550 550 Output Total 300 403 Balance 250 147 MSE: Mood: "Good" Affect: Pleasant, smiling, euthymic TP: Linear, goal- directed TC: Denies any SI/HI, denies any psychotic sxs Insight/Judgment: Fair - Time Spent With Patient Time Spent With Patient: 20" - Pending Discharge Pending Discharge Within 24 Hours: No Pending Discharge Within 48 Hours: No ICD10 Worksheet Patient Problems: Problems Problem Status Onset Decubitus ulcer Acute
[2017-05-16] MEDS: cloZAPine 100 MG TAB PO SCH (19:44)
[2017-05-17] MEDS: LORazepam 1 MG TAB PO SCH ×4 (06:13→19:47)
[2017-05-17] MEDS: DOCUSATE SODIUM 100 MG CAP PO SCH ×2 (08:15→19:47)
[2017-05-17] MEDS: ACETAMINOPHEN 325 MG TAB PO PRN ×2 (08:16→18:35)
--- NOTE | 2017-05-17 15:08 | SOAPPROG ---
SOAP Progress Note Assessment/Plan: Assessment: Per Dr. Burnett's notes: 05/12/17 14:22 Catatonia: Resolved. Will hold further ECT at this time to limit any negative effects on his ability to participate in rehab. Continue current meds and d/c planning. 05/13/17 11:17 Catatonia: Continues to do well. Will CCM, continue d/c planning. 05/14/17 14:26 Catatonia: Stable thus far. CCM. Continue active d/c planning. Subjective: Pt seen, discussed with staff. Reports feeling "good." Interacts well. Eating and sleeping well. Discussed d/c plan in team meeting. Looking for SNF. Plan: 05/15/17 15:08 1. Ate > 75% of meals last night and today. 2. Patient ambulating with walker. 3. Looking for placement in subacute rehab facility. 4. No further ECT tx 05/16/17 13:54 1. Continues to eat most of meals, ambulates with walker. 2. Remains on LOS for fall risk d/t de-conditioning. 3. Awaiting placement at [facility], possibly next week. 05/17/17 15:06 1. Eating well, ambulating with walker 2. Continue LOS 3. Awaiting placement Subjective: Met with patient, reviewed chart and d/w staff. Anthony says he feels "great" and is ambulating with assistance from walker w/o difficulty. He denies any physical complaints. Patient is eating and sleeping well. Objective: Vital Signs Temp Pulse Resp BP Pulse Ox 36.6 C 110 H 16 124/86 H 96 05/17/17 06:00 05/17/17 06:00 05/17/17 06:00 05/17/17 06:00 05/17/17 06:00 Laboratory Results 04/30/17 06:45 05/11/17 06:05 05/16/17 05/17/17 05/18/17 05:59 05:59 05:59 Intake Total 550 530 Output Total 403 300 200 Balance 147 230 -200 MSE: Mood: "Good" Affect: Euthymic TP: Linear TC: No SI/HI, no psychosis Insight/Judgment: Fair - Time Spent With Patient Time Spent With Patient: 15" - Pending Discharge Pending Discharge Within 24 Hours: No Pending Discharge Within 48 Hours: No ICD10 Worksheet Patient Problems: Problems Problem Status Onset Decubitus ulcer Acute
[2017-05-17] MEDS: cloZAPine 100 MG TAB PO SCH (19:47)
[2017-05-18] MEDS: LORazepam 1 MG TAB PO SCH ×4 (06:12→19:32)
[2017-05-18] MEDS: ACETAMINOPHEN 325 MG TAB PO PRN (08:19)
[2017-05-18] MEDS: DOCUSATE SODIUM 100 MG CAP PO SCH ×2 (08:19→19:30)
[2017-05-18] MEDS: IBUPROFEN 600 MG TAB PO PRN ×2 (09:06→19:30)
--- NOTE | 2017-05-18 14:57 | SOAPPROG ---
SOAP Progress Note Assessment/Plan: Assessment: Per Dr. Burnett's notes: 05/12/17 14:22 Catatonia: Resolved. Will hold further ECT at this time to limit any negative effects on his ability to participate in rehab. Continue current meds and d/c planning. 05/13/17 11:17 Catatonia: Continues to do well. Will CCM, continue d/c planning. 05/14/17 14:26 Catatonia: Stable thus far. CCM. Continue active d/c planning. Subjective: Pt seen, discussed with staff. Reports feeling "good." Interacts well. Eating and sleeping well. Discussed d/c plan in team meeting. Looking for SNF. Plan: 05/15/17 15:08 1. Ate > 75% of meals last night and today. 2. Patient ambulating with walker. 3. Looking for placement in subacute rehab facility. 4. No further ECT tx 05/16/17 13:54 1. Continues to eat most of meals, ambulates with walker. 2. Remains on LOS for fall risk d/t de-conditioning. 3. Awaiting placement at [facility], possibly next week. 05/17/17 15:06 1. Eating well, ambulating with walker 2. Continue LOS 3. Awaiting placement 05/18/17 14:55 1. Incontinent x 1 last night, but did get up to use toilet on 4 other occasions 2. Slept 9 hrs despite interruptions to urinate 3. Ate 100% of meals yesterday and today Subjective: Met with patient, reviewed chart and d/w staff. Patient is still ambulating with walker and denies any difficulty or gait problems. He is eating well and slept 9 hrs last night, but was incontinent x 1. Objective: Vital Signs Temp Pulse Resp BP Pulse Ox 36.5 C 100 20 115/64 93 05/18/17 06:00 05/18/17 06:00 05/18/17 06:00 05/18/17 06:00 05/18/17 06:00 Laboratory Results 04/30/17 06:45 05/11/17 06:05 05/17/17 05/18/17 05/19/17 05:59 05:59 05:59 Intake Total 530 740 Output Total 300 200 Balance 230 540 MSE: Mood: "Good" Affect: Smiling, cheerful TP: Linear TC: No SI/HI, no psychosis Insight/Judgment: Fair - Time Spent With Patient Time Spent With Patient: 20" - Pending Discharge Pending Discharge Within 24 Hours: No Pending Discharge Within 48 Hours: No ICD10 Worksheet Patient Problems: Problems Problem Status Onset Decubitus ulcer Acute
[2017-05-18] MEDS: cloZAPine 100 MG TAB PO SCH (19:30)
[2017-05-19] MEDS: ACETAMINOPHEN 325 MG TAB PO PRN ×2 (04:32→16:04)
[2017-05-19] MEDS: LORazepam 1 MG TAB PO SCH ×4 (06:22→18:54)
[2017-05-19 06:25] VITALS: TEMP 97.9
[2017-05-19] MEDS: DOCUSATE SODIUM 100 MG CAP PO SCH ×2 (08:30→18:20)
[2017-05-19] MEDS: IBUPROFEN 600 MG TAB PO PRN ×2 (08:30→18:22)
[2017-05-19] MEDS: cloZAPine 100 MG TAB PO SCH (18:19)
[2017-05-20 01:24] VITALS: BP 133/78; PULSE 80; RESP 16; O2SAT 96
[2017-05-20] MEDS: LORazepam 1 MG TAB PO SCH (06:46)
[2017-05-20] MEDS: DOCUSATE SODIUM 100 MG CAP PO SCH (08:16)
[2017-05-20] MEDS: IBUPROFEN 600 MG TAB PO PRN (08:16)
--- NOTE | 2017-05-20 11:48 | BDS ---
[f rep st] BEHAVIORAL HEALTH DISCHARGE SUMMARY REASON FOR ADMISSION: Patient is a 56-year-old male with a history of schizophrenia. He was admitted on transfer from [facility] where he had been admitted due to acute mental status change from a penitentiary facility. He had undergone hip repair from a hip fracture he suffered on 03/28/2017 and did well with the surgery, maintaining his normal mental status. He was transferred to the penitentiary facility for rehabilitation and declined precipitously. He became nonverbal, unable to walk, unable to eat , drink, or toilet himself, and was brought back for evaluation of his acute mental status change. In the hospital, he was seen by the on-call consultation psychiatrist who believed him to be catatonic and called me, asking us to transfer him for ECT treatment of the catatonia. A full description of the events preceding admission can be found in his admission history dated 2017. ADMITTING DIAGNOSES: Schizoaffective disorder, bipolar type, with psychotic features; catatonia; cannabis use disorder, moderate; nicotine use disorder, severe; status post recent surgery on his left hip; failure to thrive; malnutrition; cachexia; marginal social supports; chronic illness. ADMISSION PHYSICAL EXAMINATION: Performed by Dr. Radha Law revealed cachexia, but no other acute physical findings. ADMITTING LABORATORY: CBC showed an H and H down at 12.7 and 38. Serum chemistries were normal, with the exception of a nonfasting glucose up at 120. Liver function was drawn on 04/23/2017, which revealed an alkaline phosphatase up at 155, though normal transaminases and normal bilirubin. Urinalysis was performed on 04/29/2017, which was normal, and a B12 level was drawn on 2017, which was normal at 757. HOSPITAL COURSE: Patient was admitted to the [facility] inpatient unit on an M1 hold. He was severely catatonic, lying in bed in a position, unable to make eye contact, speak or communicate meaningfully. He was agitated, pulling off his clothes constantly and spent most of his time lying in bed nude. He was unable to toilet, except in his bed, and was placed in Depends, though would pull these off as well. He required a one-to-one due to his high fall risk, as evidenced by the fact that he would even with the one- to-one try to slide out between the bed rails on frequent occasion. He was not sleeping and appeared to be on the verge of delirium, as well as his catatonia. He appeared stable medically, and we proceeded with emergency ECT starting on April 21. He tolerated this well and had a good treatment on his first treatment. By the day after his first treatment, he was much more alert, able to speak some, able to make eye contact and able to eat. This waned, however, and he returned to a catatonic state by the end of the second day. He followed this pattern for the first 7-10 days of his treatments, where he would improve significantly after the treatment and then would decline back into catatonia. He continued to require one-on-one for safety and for help. After approximately his fifth treatment, however, the benefit began to carry over. He remained lucid, with some waning, but not complete reversion to catatonia. Eventually, he returned to his normal cognitive state and was fully alert and lucid and able to convert to a voluntary status. He underwent a total of 10 ECT treatments on a bilateral basis, which he tolerated well, with no complications. His last treatment was on May 09. Overall, patient's hospitalization was uncomplicated. He had 2 minor falls where he slid out of the bed one time and slid out of a wheelchair another time , and therefore, remained on a line of sight through his day due to his tendency to not ask for help. He also arrived with several pressure ulcers, one on his sacrum and one on his right heel. These were managed with wound care input. His mental status normalized. He was eating, drinking and toileting normally, and there was no evidence of acute psychosis. He was continued on his medications as per prior to admission, which included clozapine 400 mg p.o. q.h.s. as his primary antipsychotic medication. The patient's case was coordinated with Dr. Xiao, psychiatrist at [facility] in [place] [facility]. Considerable effort was made to help protect the patient's animals, specifically a cockatoo and a cat, and interim placements were found for these from the [facility]. The patient is aware of this and gave his written consent to have this done. He has several other animals that their whereabouts are unknown to me at this time. It was decided by the team the patient needed to go and have continued penitentiary rehab for his hip as he is still minimally ambulatory. He was able to be admitted to [facility] in [place] and was transferred there on the day of this dictation. CONDITION ON DISCHARGE: Stable. The patient is eating, drinking, talking, and interacting normally. He still does prefer to be in bed and has very low energy , but will ambulate with assistance. He is exhibiting no evidence of acute psychosis. DISCHARGE MEDICATIONS: Clozapine 400 mg p.o. at bedtime, Colace 100 mg p.o. b.i.d., Motrin 600 mg q.6 hours as needed for pain, lorazepam 1 mg p.o. b.i.d. Please note that the lorazepam was partially to help with his catatonia and that he has not exhibited anxiety, per se, during his hospitalization. I would recommend a slow taper of this to discontinuation over the next several weeks. DISCHARGE DIAGNOSES: Schizoaffective disorder, bipolar type, chronic with acute exacerbation, currently euthymic. Left hip fracture with surgical repair , cachexia, pressure ulcers on his sacrum and right heel that are healing, out- of-home placement, chronic illness. DISPOSITION: Patient left the hospital with the penitentiary facility to go to [facility]. LEGAL COURSE: Patient was placed on a short-term certification at the expiration of his M1 hold. Patient was then converted to voluntary basis, and the short-term certification was discontinued. Attitude on discharge was positive. I certify the patient was given instructions, including followup appointments. /[id number] [id number]
== END 2017-05-20 11:00 | DRG 885 ==
LOC: BBEH 16:43
PROVIDERS: ADMIT Psychiatry & Neurology Psychiatry; ATTEND Psychiatry & Neurology Psychiatry
PROC: GZB4ZZZ Other Electroconvulsive Therapy (ICD-10-PCS; principal; 2017-04-21)
DX: F25.0 Schizoaffective disorder, bipolar type (principal); E43 Unspecified severe protein-calorie malnutrition; Z68.1 Body mass index [BMI] 19.9 or less, adult; F06.1 Catatonic disorder due to known physiological condition; F12.90 Cannabis use, unspecified, uncomplicated; Z72.0 Tobacco use; R62.7 Adult failure to thrive; L89.159 Pressure ulcer of sacral region, unspecified stage; L89.619 Pressure ulcer of right heel, unspecified stage
CPT/HCPCS: 82607-90; 97110-GP; 97116-GP; 97162-GP; 97166-GO; 97530-GP; 97535-GO; G8978-GP-CI; G8978-GP-CJ; G8978-GP-CK; G8979-GP-CI; G8979-GP-CJ; G8980-GP-CI; G8987-GO-CM; G8988-GO-CJ; G8988-GO-CM; G8992-GO-CM; J0330; J2060; J2250; J2405; J3010; Q9967